=== PATIENT | male | born 1930 | race Caucasian/White ===

== ENCOUNTER 2016-10-06 20:45 | Observation (INO) | payer OTHER, BC ==
--- NOTE | 2016-10-06 21:23 | DR.GENAD ---
HPI - PCP Primary Care Physician: MARY - Complaint/Symptoms Chief Complaint Doctors Comments: Daughter states that he has episodes of SOB, previous PE; inferior vena cava filter placed. He has been feeling weak for some time. Chief Complaint:: PT C/O SOB AND FEELING WEAK - Source History Provided: Patient - Mode of Arrival Mode of Arrival: Wheelchair - Timing Onset of Chief Complaint: 10/06/16 PMH - PMH Past Medical History: Yes Past Medical History: Angina, CHF, Diabetes, Dyslipidemia, Hypertension Past Surgical History: Yes Surgical History: Angioplasty/Stents, Cholecystectomy - Family History History of Family Medical Conditions: Yes Family Medical History: Diabetes Mellitus, [place], Sudden Cardiac , Hypertension - Social History Does any household member use tobacco: No Alcohol Use: None Do you use any recreational Drugs:: No Lives With: Family Lives Where: Home - infectious screening In the last 2 months have you had wt loss of >10#?: NO Have you had fever, night sweats or hemotysis?: No Have you traveled outside the country in the last 6 months?: No Isolation: Standard ROS - Review of Systems Constitutional: No Symptoms Reported Eyes: No Symptoms Reported ENTM: No Symptoms Reported Respiratoy: No Symptoms Reported Cardiovascular: No Symptoms Reported Gastrointestinal/Abdominal: No Symptoms Reported Genitourinary: No Symptoms Reported Neurological: No Symptoms Reported Musculoskeletal: No Symptoms Reported Integumentary: No Symptoms Reported Hematologic/Lymphatic: No Symptoms Reported Endocrine: No Symptoms Reported Psychiatric: No Symptoms Reported All Other Systems: Reviewed and Negative PE - Vital Signs Vitals: Temperature 97.6 F Pulse Rate 66 Respiratory Rate 18 Blood Pressure [Right Arm] 109/57 Blood Pressure [Left Arm] 157/76 Blood Pressure 142/77 O2 Sat by Pulse Oximetry 99 - General Limitations: No Limitations General Appearance: Alert, In No Apparent Distress - Head Head Exam: Atraumatic - Eyes Eye exam: Normal Appearance, PERRL, EOMI - ENT ENT Exam: Normal Exam External Ear Exam: Normal External Inspection TM/Canal Exam: Bilateral Normal Nose Exam: Normal Nose Exam Mouth Exam: Normal Inspection Throat Exam: Normal Inspection - Neck Neck Exam: Normal Inspection - Chest Chest Inspection: Normal Inspection - Respiratory Respiratory Exam: Normal Lung Sounds Bilat Respiratory Exam: Bilateral Clear to Auscultation - Cardiovascular Cardiovascular Exam: Regular Rate, Normal Rhythm - Abdominal Exam Abdominal Exam: Normal Inspection Abdominal Tenderness: negative: RUQ, RLQ, LUQ, LLQ, Epigastrium, Suprapubic, Diffuse, Mild, Moderate, Severe, Other - Extremities Extremities Exam: Normal Inspection, Full ROM - Back Back Exam: Normal Inspection, Full ROM - Neurologic Neurological Exam: Alert, Oriented X3, CN II-XII Intact - Psychiatric Psychiatric Exam: Normal Affect - Skin Skin Exam: Warm, Dry, Intact Course - Consultation Called: 11:00 (Dr Obrien recommend admit for further evaluation) ROR - Labs Reviewed Result Diagrams: 10/06/16 21:40 10/06/16 21:40 Laboratory: WBC 4.0 X10^3/uL (3.6-10.0) 10/06/16 21:40 RBC 3.84 X10^6/uL (4.7-6.0) L 10/06/16 21:40 Hgb 11.7 g/dL (13.5-18.0) L 10/06/16 21:40 Hct 34.7 % (42.0-54.0) L 10/06/16 21:40 MCV 90.2 fL (80.0-100.0) 10/06/16 21:40 MCH 30.4 pg (27.0-34.0) 10/06/16 21:40 MCHC 33.7 g/dL (33.0-35.0) 10/06/16 21:40 RDW 14.1 % (11.6-16.5) 10/06/16 21:40 Plt Count 138 X10^3/uL (150.0-450.0) L 10/06/16 21:40 MPV 8.4 fL (7.4-11.0) 10/06/16 21:40 Neut % 66.9 % (42.0-75.0) 10/06/16 21:40 Lymph % 19.5 % (21.0-51.0) L 10/06/16 21:40 [place] % 10.6 % (0.0-13.0) 10/06/16 21:40 Eos % 2.0 % (0.9-2.9) 10/06/16 21:40 Baso % 1.0 % (0.2-1.0) 10/06/16 21:40 Neut # 2.6 x10^3/uL (2.2-4.8) 10/06/16 21:40 Lymph # 0.8 X10^3/uL (1.3-2.9) L 10/06/16 21:40 [place] # 0.4 x10^3/uL (0.3-0.8) 10/06/16 21:40 Eos # 0.1 x10^3/uL (0.0-0.2) 10/06/16 21:40 Baso # 0.0 X10^3/uL (0.0-0.1) 10/06/16 21:40 Absolute Nucleated RBC 0.1 /100WBC 10/06/16 21:40 D-Dimer 611 ng/mL (0-400) H* 10/06/16 21:40 Sodium 142 mmol/L (136-145) 10/06/16 21:40 Corrected Sodium 144 mmol/L (136-145) 10/06/16 21:40 Potassium 3.9 mmol/L (3.5-5.1) 10/06/16 21:40 Chloride 107 mmol/L (98-107) 10/06/16 21:40 Carbon Dioxide 28.2 mmol/L (21-32) 10/06/16 21:40 BUN 18 mg/dL (7-18) 10/06/16 21:40 Creatinine 1.61 mg/dL (0.70-1.30) H 10/06/16 21:40 Est GFR (MDRD) Af Amer 52 (>60) L 10/06/16 21:40 Est GFR (MDRD) Non-Af 43 (>60) L 10/06/16 21:40 Glucose 172 mg/dL (65-99) H 10/06/16 21:40 Calcium 8.1 mg/dL (8.5-10.1) L 10/06/16 21:40 Corrected Calcium 9.1 mg/dL (8.5-10.1) 10/06/16 21:40 Total Bilirubin 0.40 mg/dL (0.2-1.0) 10/06/16 21:40 AST 15 Units/L (15-37) 10/06/16 21:40 ALT 21 Units/L (12-78) 10/06/16 21:40 Alkaline Phosphatase 36 Units/L (46-116) L 10/06/16 21:40 Total Protein 5.9 g/dL (6.4-8.2) L 10/06/16 21:40 Albumin 2.8 g/dL (3.4-5.0) L 10/06/16 21:40 Globulin 3.1 g/dL (2.5-4.5) 10/06/16 21:40 Albumin/Globulin Ratio 0.9 Ratio (1.1-2.1) L 10/06/16 21:40 - XRAY XRAY Interpreted by: Radiologist (Acute Abdomen Series: The cardiac silhouette is enlarged in size. The lungs are clear without focal infiltrate or effusion. The bony thorax is unremarkable. Flat plate and upright evaluation of the abdomen demonstrates a nonspecific bowel gas pattern. An IVC filter is in present. No pathological soft tissue mass or calcification can be observed. The bony structures are grossly intact. Impression: Cardiomegaly without evidence of acute cardiopulmonary process. No evidence for acute abdominal pathology identified.) - Diagnosis Discharge Problem: Acute dyspnea, At high risk for pulmonary embolism - Discharge Plan Condition: Stable - Follow ups/Referrals Follow ups/Referrals: Pacheco Obrien [Primary Care Provider] - 3 days - Instructions
[2016-10-06 21:54] LABS: EOSINOPHILS # (AUTO) 0.1 x10^3/uL (0.0-0.2); HEMATOCRIT 34.7 % (42.0-54.0); HEMOGLOBIN 11.7 g/dL (13.5-18.0); LYMPHOCYTES # (AUTO) 0.8 X10^3/uL (1.3-2.9); LYMPHOCYTES % (AUTO) 19.5 % (21.0-51.0); MEAN CORPUSCULAR HEMOGLOBIN 30.4 pg (27.0-34.0); MEAN CORPUSCULAR HGB CONC 33.7 g/dL (33.0-35.0); MEAN CORPUSCULAR VOLUME 90.2 fL (80.0-100.0); MEAN PLATELET VOLUME 8.4 fL (7.4-11.0); MONOCYTES # (AUTO) 0.4 x10^3/uL (0.3-0.8); MONOCYTES % (AUTO) 10.6 % (0.0-13.0); NEUTROPHILS # (AUTO) 2.6 x10^3/uL (2.2-4.8); NEUTROPHILS % (AUTO) 66.9 % (42.0-75.0); PLATELET COUNT 138 X10^3/uL (150.0-450.0); RED BLOOD COUNT 3.84 X10^6/uL (4.7-6.0); RED CELL DISTRIBUTION WIDTH 14.1 % (11.6-16.5)
[2016-10-06 22:05] LABS: ALBUMIN 2.8 g/dL (3.4-5.0); CALCIUM 8.1 mg/dL (8.5-10.1); CARBON DIOXIDE 28.2 mmol/L (21-32); COR CA(FOR HYPOALB) 9.1 mg/dL (8.5-10.1); CREATININE 1.61 mg/dL (0.70-1.30); TOTAL PROTEIN 5.9 g/dL (6.4-8.2)
--- NOTE | 2016-10-06 22:32 | RAD ---
HISTORY: Shortness of breath and weakness Study: Acute abdominal series Comparison: Chest radiograph performed May 20, 2015 Findings: The trachea is midline. The cardiac silhouette is enlarged in size. The lungs are clear without fo vicky infiltrate or effusion. The bony thorax is unremarkable. Flat plate and upright evaluation of the abdomen demonstrates a nonspecific bowel gas pattern. An IV C filter is present. No pathological soft tissue mass or calcification can be observed. The bony s tructures are grossly intact. IMPRESSION: 1. Cardiomegaly without evidence of acute cardiopulmonary process 2. No evidence for acute abdominal pathology identified. Reported By:
[2016-10-06] MEDS ORDERED: NS 1000 ML 1,000 ML ONE (23:54)
[2016-10-06] MEDS: NS 1000 ML 1,000 ML IV SCH (23:55)
[2016-10-07] MEDS: LIPITOR TAB 40 MG PO SCH ×2 (01:19→21:14)
[2016-10-07 05:04] LABS: BASOPHILS % (AUTO) 0.9 % (0.2-1.0); EOSINOPHILS # (AUTO) 0.1 x10^3/uL (0.0-0.2); EOSINOPHILS % (AUTO) 2.6 % (0.9-2.9); HEMATOCRIT 34.9 % (42.0-54.0); HEMOGLOBIN 11.7 g/dL (13.5-18.0); LYMPHOCYTES # (AUTO) 0.9 X10^3/uL (1.3-2.9); MEAN CORPUSCULAR HEMOGLOBIN 30.4 pg (27.0-34.0); MEAN CORPUSCULAR HGB CONC 33.5 g/dL (33.0-35.0); MEAN CORPUSCULAR VOLUME 90.9 fL (80.0-100.0); MEAN PLATELET VOLUME 8.8 fL (7.4-11.0); MONOCYTES # (AUTO) 0.4 x10^3/uL (0.3-0.8); MONOCYTES % (AUTO) 11.6 % (0.0-13.0); NEUTROPHILS # (AUTO) 2.3 x10^3/uL (2.2-4.8); NEUTROPHILS % (AUTO) 61.9 % (42.0-75.0); PLATELET COUNT 121 X10^3/uL (150.0-450.0); RED BLOOD COUNT 3.84 X10^6/uL (4.7-6.0); RED CELL DISTRIBUTION WIDTH 13.9 % (11.6-16.5); WHITE BLOOD COUNT 3.7 X10^3/uL (3.6-10.0)
[2016-10-07 05:09] LABS: ALANINE AMINOTRANSFERASE 17 Units/L (12-78); ALBUMIN 2.6 g/dL (3.4-5.0); ALKALINE PHOSPHATASE 32 Units/L (46-116); ASPARTATE AMINO TRANSFERASE 14 Units/L (15-37); BLOOD UREA NITROGEN 16 mg/dL (7-18); CARBON DIOXIDE 26.8 mmol/L (21-32); CHLORIDE 109 mmol/L (98-107); COR CA(FOR HYPOALB) 9.1 mg/dL (8.5-10.1); CREATININE 1.26 mg/dL (0.70-1.30); GLUCOSE 108 mg/dL (65-99); SODIUM 143 mmol/L (136-145); TOTAL PROTEIN 5.4 g/dL (6.4-8.2); eGFR BLACK RACES > 60 (>60); eGFR NON BLACK RACES 58 (>60)
[2016-10-07] MEDS: BENTYL CAP 10 MG PO SCH ×3 (05:44→21:14)
[2016-10-07] MEDS: VITAMIN D3 PO SCH (08:59)
[2016-10-07] MEDS: PLAVIX PO SCH (09:00)
[2016-10-07] MEDS: COUMADIN TAB 3 MG PO SCH (09:00)
[2016-10-07] MEDS: COLACE CAP 100 MG PO SCH ×2 (09:00→21:14)
[2016-10-07] MEDS ORDERED: AMARYL TAB 4 MG PO SCH (09:00)
[2016-10-07] MEDS: PROTONIX TAB 40 MG PO SCH (09:00)
[2016-10-07] MEDS: TOPROL XL PO SCH (09:00)
[2016-10-07] MEDS: AMARYL TAB 4 MG PO SCH (09:00)
[2016-10-07] MEDS: NOLVADEX PO SCH ×2 (09:02→14:20)
[2016-10-07] MEDS: HUMULIN R SUBCUT PRN (11:07)
[2016-10-07] MEDS: NS 1000 ML 1,000 ML IV SCH ×2 (12:31→14:17)
--- NOTE | 2016-10-07 14:21 | DR.H&P ---
H&P - History & Physical for Day of: H&P Date: 10/06/16 - Chief Complaint Chief Complaint: SHORTNESS OF BREATH - Allergies Allergies/Adverse Reactions: Allergies Allergy/AdvReac Type Severity Reaction Status Date / Time No Known Drug Allergy Allergy Verified 05/19/15 22:47 - History of Present Illness History of Present Illness: THIS IS AN 86 YEAR OLD MALE, WHO IS A PATIENT OF OURS. HE PRESENTS TO THE EMERGENCY ROOM WITH DAUGHTER REPORTING SHORTNESS OF BREATH. DAUGHTER REPORTS PATIENT HAS A HISTORY OF PULMONARY EMBOLUS. SHE ALSO REPORTS SHORTNESS OF BREATH STARTED APPROXIMATELY TWO WEEKS AGO AND HAS WORSENED IN SEVERITY. PATIENT REPORTS GENERALIZED WEAKNESS. PATIENT HAS HAD AN IVC FILTER PLACED AND IS CURRENTLY ON COUMADIN AND PLAVIX AT HOME. LABS AND XRAY OBTAINED. CBC WNL EXCEPT: H/H 11.7/34.7, PLT COUNT 138. CMP WNL EXCEPT: CREAT 1.61, GFR 43, GLUCOSE 172, CALCIUM 8.1, TOT PROTEIN 5.9, ALBUMIN 2.8. INR 1.31. D-DIMER 611. ABDOMINAL XRAY REPORTS CARDIOMEGALY WITHOUT EVIDENCE OF ACUTE CARDIOPULMONARY PROCESS; NO EVIDENCE FOR ACUTE ABDOMINAL PATHOLOGY. WE WILL CONTINUE PATIENT ON COUMADIN AND PLAVIX. WE WILL START SUPPLEMENTAL OXYGEN, MONITOR ON TELEMETRY, AND FOLLOW UP IN AM WITH LABS. - Past Medical History Past Medical History: Anemia, Angina, CHF, Coronary Artery Disease, Diabetes, Dyslipidemia, Hypertension Additional Medical History: Hx Gastrointestinal Ulcer, BPH, Hx multiple PE's, Pulmonary HTN, Hx Prostate Cancer, TIA, Diverticulosis, Muscle Weakness, Back Pain, Previous Blood Transfusion, Prostate Cancer - Past Surgical History Surgical History: Angioplasty/Stents, Cholecystectomy, Other Additional Surgical History: Cataract Removal, IVC Filter, Heart Cath 06/2016 - Family History Family Medical History: Diabetes Mellitus, [place] - Social History Does patient currently use any type of tobacco product: Yes (CHEWS) Have you used tobacco products in the last 12 months: Yes Type of Tobacco Use: Smokeless How many years tobacco product used: 65 Does any household member use tobacco: No Alcohol Use: None Drug Use: None - Medications Home Medications: Cholecalciferol [Vitamin D3] 5,000 unit PO BID 10/06/16 [History Confirmed 10/07] Dicyclomine HCl [Bentyl Cap 10 mg] 10 mg PO TID 10/06/16 [History Confirmed ] Lisinopril [ZESTRIL *] 40 mg PO HS 10/06/16 [History Confirmed 10/07/16] Metoprolol Succinate [Toprol Xl] 25 mg PO DAILY 10/06/16 [History Confirmed ] Pantoprazole Sodium 40 mg [Protonix Tab 40 mg] 40 mg PO DAILY 10/06/16 [History Confirmed 10/07/16] Warfarin Sodium [Coumadin Tab 3 mg] 3 mg PO DAILY 10/06/16 [History Confirmed ] - Review of Systems Constitutional: Weakness, Malaise Eyes: No Symptoms Reported. denies: Pain, Vision Change, Conjunctivae Inflammation, Eyelid Inflammation, Redness ENT: No Symptoms Reported. denies: Ear Pain, Ear Discharge, Nose Pain, Nose Discharge, Nose Congestion, Mouth Pain, Mouth Swelling, Throat Pain, Throat Swelling Respiratory: Shortness of Breath, SOB with Excertion. denies: Cough, Hemoptysis , Pleuritic Pain, Sputum, Wheezing Cardiovascular: No Symptoms Reported. denies: Chest Pain, Palpitations, Orthopnea, Paroxysmal Noc. Dyspnea, Edema, Light Headedness Gastrointestinal: No Symptoms Reported. denies: Nausea, Vomiting, Abdominal Pain, Diarrhea, Constipation, Melena, Hematochezia Genitourinary: No Symptoms Reported. denies: Dysuria, Frequency, Incontinence, Hematuria, Retention Musculoskeletal: No Symptoms Reported. denies: Shoulder Pain, Back Pain, Hand Pain, Leg Pain, Foot Pain, Neck Pain Skin: No Symptoms Reported. denies: Rash, Lesions, Jaundice, Bruising, Wound, Ecchymosis Neurological: No Symptoms Reported. denies: Weakness, Numbness, Incoordination , Change in Speech, Confusion, Seizures - Physical Exam Vital Signs: Temperature 98.9 F Pulse Rate [Apical] 52 Respiratory Rate 15 Blood Pressure [Left Arm] 156/69 O2 Sat by Pulse Oximetry 98 Oriented: Normal, Time, Person, Place Eyes: Normal. negative: Blurred Vision, Discharge, Pain, Redness Ear: Normal. negative: Swelling, Ecchymosis, Hemotypanum, Abrasion, Laceration Nose: Normal. negative: Injected, Discharge, Blood Throat: Normal. negative: Tonsillar Hypertrophy, Red, Exudate Respiratory: Clear Throughout Cardiovascular: Normal. negative: Murmur, Edema : Normal. negative: Dysuria, Hematuria, Frequency, Discharge, Testicular Pain Auscultation: Bowel Sounds: Normal. negative: Bruit Palpation: Normal. negative: Spleen Enlarged, Liver Enlarged, Mass Pulsatile Tenderness: Normal. negative: Rebound, Guarding, Rigidity Skin: Normal. negative: Diaphoresis, Wound, Bruising, Ecchymosis Musculoskeletal: Instability Psychiatric: Normal Mood Description: Calm, Appropriate Affect: Normal Speech Pattern: Clear, Appropriate - Assessment/Plan (1) Acute dyspnea Status: Acute Plan: ADMIT PATIENT, MONITOR ON CONTINUOUS PULSE OXIMETRY, TELEMETRY, SUPPLEMENTAL OXYGEN, CONTINUE PLAVIX AND COUMADIN, VQ SCAN IN AM. (2) At high risk for pulmonary embolism Status: Acute Plan: ABOVE. (3) History of pulmonary embolism Status: Chronic (4) COPD (chronic obstructive pulmonary disease) Qualifiers: COPD type: emphysema Chronic bronchitis type: C Emphysema type: unspecified Qualified Code(s): J43.9 - Emphysema, unspecified Status: Chronic (5) Emphysema Status: Chronic (6) CHF (congestive heart failure) Qualifiers: Congestive heart failure type: unspecified congestive heart failure type Congestive heart failure chronicity: acute Qualified Code(s): I50.9 - Heart failure, unspecified Status: Chronic (7) Diabetes mellitus, type II Qualifiers: Diabetes mellitus complication status: without complication Diabetes mellitus complication detail: D Diabetic retinopathy severity: D Proliferative retinopathy type: P Diabetes mellitus macular edema: D Diabetes mellitus building superintendent insulin use: without fdc use Laterality: L Chronic kidney disease stage: C Qualified Code(s): E11.9 - Type 2 diabetes mellitus without complications Status: Chronic (8) Essential hypertension Status: Chronic (9) Hyperlipidemia Qualifiers: Hyperlipidemia type: mixed hyperlipidemia Qualified Code(s): E78.2 - Mixed hyperlipidemia Status: Chronic
--- NOTE | 2016-10-07 14:25 | NM ---
HISTORY: Elevated D-dimer, shortness of breath Study: Ventilation-perfusion lung scan Comparison: Plain film October 06, 2016 Technique: Ventilation scan was carried out using 25 millicuries technetium 99 DTPA aerosol. Perfusi on scan was carried out using 5.5 millicuries technetium 99 MAA. Findings: Resulting images demonstrated symmetric ventilation without ventilation defects. Perfusion images de monstrated a lobar perfusion defect involving the right middle lobe. No other perfusion defects are identified. Plain chest x-ray demonstrated cardiomegaly without congestive heart failure and clear l ungs. According to the modified PIOPED criteria for the diagnosis of pulmonary embolus the presence of a lobar perfusion defect in the setting of a normal ventilation scan and clear chest x-ray base the probability of acute pulmonary thromboembolic disease high. IMPRESSION: High probability acute pulmonary thromboembolic disease based on a mismatched ventilation-perfusion defects involving the right middle lobe. Reported By:
--- NOTE | 2016-10-07 14:50 | PCM.PROG ---
Progress Note - Progress Note for Day of Date: 10/07/16 - Subjective Subjective: PATIENT IS UP AND AMBULATING TO BATHROOM UPON ROUNDS. HE IS NOTED WITH SHORTNESS OF BREATH WITH EXERTION. A VQ SCAN IS PLANNED FOR TODAY. DAUGHTER AT BEDSIDE. WE DISCUSS PLANS FOR ADDITIONAL TESTING TODAY AND CONTINUED MONITORING. SHE VOICES UNDERSTANDING. ON AUSCULTATION, LUNGS DIMINSHED, BUT CLEAR. CBC WNL EXCEPT: H/H 11.7/34.9. PLT COUNT 121. CMP WNL EXCEPT: CHL 109, GFR 58, GLUCOSE 108, CALCIUM 8.0, TOT PROTEIN 5.4, ALBUMIN 2.6. WE WILL START ALBUMIN, OBTAIN SERIAL CARDIAC ENZYMES AND EKG'S, AND CONTINUE TO MONITOR. WE WILL OBTAIN VQ SCAN TODAY AND CONTINUE SUPPLEMENTAL OXYGEN. - Past Medical Family Social History Past Med/Fam/Surg Hx: No changes since H&P Allergies: Allergies No Known Drug Allergy Allergy (Verified 05/19/15 22:47) - Review of Systems ROS: No change since H&P - Vital Signs and I&O's Vital Signs: Temperature 98.9 F Pulse Rate [Apical] 52 Respiratory Rate 15 Blood Pressure [Left Arm] 156/69 O2 Sat by Pulse Oximetry 98 Intake and Output: Intake & Output 10/05/16 10/06/16 10/07/16 10/08/16 11:59 11:59 11:59 11:59 Intake Total 791 1065 Output Total 670 800 Balance 121 265 - Physical Exam Oriented: Normal, Time, Person, Place Eyes: Normal. negative: Blurred Vision, Discharge, Pain, Redness Ear: Normal. negative: Swelling, Ecchymosis, Hemotypanum, Abrasion, Laceration Nose: Normal. negative: Injected, Discharge, Blood Throat: Normal. negative: Tonsillar Hypertrophy, Red, Exudate Respiratory: Generalized, Diminished Cardiovascular: Normal. negative: Murmur, Edema : Normal. negative: Dysuria, Hematuria, Frequency, Discharge, Testicular Pain Auscultation: Bowel Sounds: Normal. negative: Bruit Palpation: Normal. negative: Spleen Enlarged, Liver Enlarged, Mass Pulsatile Tenderness: Normal. negative: Rebound, Guarding, Rigidity Skin: Normal. negative: Diaphoresis, Wound, Bruising, Ecchymosis Musculoskeletal: Instability Psychiatric: Normal Mood Description: Calm, Appropriate Affect: Normal Speech Pattern: Clear, Appropriate - Laboratory and Diagnostics Result Diagrams: 10/07/16 04:15 10/07/16 04:15 Labs: Laboratory WBC 3.7 X10^3/uL (3.6-10.0) 10/07/16 04:15 RBC 3.84 X10^6/uL (4.7-6.0) L 10/07/16 04:15 Hgb 11.7 g/dL (13.5-18.0) L 10/07/16 04:15 Hct 34.9 % (42.0-54.0) L 10/07/16 04:15 MCV 90.9 fL (80.0-100.0) 10/07/16 04:15 MCH 30.4 pg (27.0-34.0) 10/07/16 04:15 MCHC 33.5 g/dL (33.0-35.0) 10/07/16 04:15 RDW 13.9 % (11.6-16.5) 10/07/16 04:15 Plt Count 121 X10^3/uL (150.0-450.0) L 10/07/16 04:15 MPV 8.8 fL (7.4-11.0) 10/07/16 04:15 Neut % 61.9 % (42.0-75.0) 10/07/16 04:15 Lymph % 23.0 % (21.0-51.0) 10/07/16 04:15 [place] % 11.6 % (0.0-13.0) 10/07/16 04:15 Eos % 2.6 % (0.9-2.9) 10/07/16 04:15 Baso % 0.9 % (0.2-1.0) 10/07/16 04:15 Neut # 2.3 x10^3/uL (2.2-4.8) 10/07/16 04:15 Lymph # 0.9 X10^3/uL (1.3-2.9) L 10/07/16 04:15 [place] # 0.4 x10^3/uL (0.3-0.8) 10/07/16 04:15 Eos # 0.1 x10^3/uL (0.0-0.2) 10/07/16 04:15 Baso # 0.0 X10^3/uL (0.0-0.1) 10/07/16 04:15 Absolute Nucleated RBC 0.1 /100WBC 10/07/16 04:15 INR Target Range - 10/06/16 21:40 INR 1.31 (0.8-1.3) H 10/06/16 21:40 D-Dimer 611 ng/mL (0-400) H* 10/06/16 21:40 Sodium 143 mmol/L (136-145) 10/07/16 04:15 Corrected Sodium TNP 10/07/16 04:15 Potassium 3.6 mmol/L (3.5-5.1) 10/07/16 04:15 Chloride 109 mmol/L (98-107) H 10/07/16 04:15 Carbon Dioxide 26.8 mmol/L (21-32) 10/07/16 04:15 BUN 16 mg/dL (7-18) 10/07/16 04:15 Creatinine 1.26 mg/dL (0.70-1.30) 10/07/16 04:15 Est GFR (MDRD) Af Amer > 60 (>60) 10/07/16 04:15 Est GFR (MDRD) Non-Af 58 (>60) L 10/07/16 04:15 Glucose 108 mg/dL (65-99) H 10/07/16 04:15 Calcium 8.0 mg/dL (8.5-10.1) L 10/07/16 04:15 Corrected Calcium 9.1 mg/dL (8.5-10.1) 10/07/16 04:15 Total Bilirubin 0.50 mg/dL (0.2-1.0) 10/07/16 04:15 AST 14 Units/L (15-37) L 10/07/16 04:15 ALT 17 Units/L (12-78) 10/07/16 04:15 Alkaline Phosphatase 32 Units/L (46-116) L 10/07/16 04:15 Total Protein 5.4 g/dL (6.4-8.2) L 10/07/16 04:15 Albumin 2.6 g/dL (3.4-5.0) L 10/07/16 04:15 Globulin 2.8 g/dL (2.5-4.5) 10/07/16 04:15 Albumin/Globulin Ratio 0.9 Ratio (1.1-2.1) L 10/07/16 04:15 - Plan (1) Acute dyspnea Status: Acute Plan: OBTAIN SERIAL CARDIAC ENZYMES, EKG'S, CONTINUE TO MONITOR ON CONTINUOUS PULSE OXIMETRY, TELEMETRY, SUPPLEMENTAL OXYGEN, CONTINUE PLAVIX AND COUMADIN, VQ SCAN TODAY. (2) At high risk for pulmonary embolism Status: Acute Plan: ABOVE. (3) History of pulmonary embolism Status: Chronic (4) COPD (chronic obstructive pulmonary disease) Status: Chronic Qualifiers: COPD type: emphysema Chronic bronchitis type: C Emphysema type: unspecified Qualified Code(s): J43.9 - Emphysema, unspecified (5) Emphysema Status: Chronic (6) CHF (congestive heart failure) Status: Chronic Qualifiers: Congestive heart failure type: unspecified congestive heart failure type Congestive heart failure chronicity: acute Qualified Code(s): I50.9 - Heart failure, unspecified (7) Diabetes mellitus, type II Status: Chronic Qualifiers: Diabetes mellitus complication status: without complication Diabetes mellitus complication detail: D Diabetic retinopathy severity: D Proliferative retinopathy type: P Diabetes mellitus macular edema: D Diabetes mellitus intermodal truck driver insulin use: without intermodal truck driver use Laterality: L Chronic kidney disease stage: C Qualified Code(s): E11.9 - Type 2 diabetes mellitus without complications (8) Essential hypertension Status: Chronic (9) Hyperlipidemia Status: Chronic Qualifiers: Hyperlipidemia type: mixed hyperlipidemia Qualified Code(s): E78.2 - Mixed hyperlipidemia
[2016-10-07] MEDS: ALBUMIN HUMAN 25%- 100ML 100 ML IV SCH (14:56)
[2016-10-07 15:14] LABS: CKMB % 1.8 % (<4); CREATINE KINASE MB 1.4 ng/mL (0-4.0); TROPONIN I 0.02 ng/mL (0-1.5)
[2016-10-07 19:11] LABS: CREATINE KINASE MB 1.1 ng/mL (0-4.0); TROPONIN I 0.03 ng/mL (0-1.5)
[2016-10-07] MEDS ORDERED: SNACK - Diabetic Appropriate PO SCH (20:00)
[2016-10-07] MEDS ORDERED: ZESTRIL TAB 40 MG PO SCH (21:00)
[2016-10-07 23:05] LABS: CKMB % 1.9 % (<4); CREATINE KINASE MB 1.1 ng/mL (0-4.0); TROPONIN I 0.02 ng/mL (0-1.5)
[2016-10-08] MEDS: NS 1000 ML 1,000 ML IV SCH ×2 (01:05→16:23)
[2016-10-08 05:22] LABS: ALANINE AMINOTRANSFERASE 15 Units/L (12-78); ALBUMIN 2.8 g/dL (3.4-5.0); ALKALINE PHOSPHATASE 31 Units/L (46-116); ASPARTATE AMINO TRANSFERASE 12 Units/L (15-37); BLOOD UREA NITROGEN 17 mg/dL (7-18); CALCIUM 8.2 mg/dL (8.5-10.1); CARBON DIOXIDE 26.3 mmol/L (21-32); CHLORIDE 109 mmol/L (98-107); COR CA(FOR HYPOALB) 9.2 mg/dL (8.5-10.1); COR NA(FOR HYPERGLY) 141 mmol/L (136-145); CREATININE 1.01 mg/dL (0.70-1.30); GLUCOSE 114 mg/dL (65-99); SODIUM 141 mmol/L (136-145); TOTAL PROTEIN 5.2 g/dL (6.4-8.2); eGFR BLACK RACES > 60 (>60); eGFR NON BLACK RACES > 60 (>60)
[2016-10-08 05:23] LABS: EOSINOPHILS # (AUTO) 0.1 x10^3/uL (0.0-0.2); EOSINOPHILS % (AUTO) 2.3 % (0.9-2.9); HEMATOCRIT 32.3 % (42.0-54.0); HEMOGLOBIN 10.8 g/dL (13.5-18.0); LYMPHOCYTES # (AUTO) 0.6 X10^3/uL (1.3-2.9); LYMPHOCYTES % (AUTO) 17.4 % (21.0-51.0); MEAN CORPUSCULAR HEMOGLOBIN 30.3 pg (27.0-34.0); MEAN CORPUSCULAR HGB CONC 33.4 g/dL (33.0-35.0); MEAN CORPUSCULAR VOLUME 90.7 fL (80.0-100.0); MEAN PLATELET VOLUME 8.6 fL (7.4-11.0); MONOCYTES # (AUTO) 0.5 x10^3/uL (0.3-0.8); MONOCYTES % (AUTO) 12.3 % (0.0-13.0); NEUTROPHILS # (AUTO) 2.5 x10^3/uL (2.2-4.8); PLATELET COUNT 110 X10^3/uL (150.0-450.0); RED BLOOD COUNT 3.56 X10^6/uL (4.7-6.0); WHITE BLOOD COUNT 3.7 X10^3/uL (3.6-10.0)
[2016-10-08] MEDS: BENTYL CAP 10 MG PO SCH ×3 (05:58→13:42)
[2016-10-08] MEDS: AMARYL TAB 4 MG PO SCH (06:00)
--- NOTE | 2016-10-08 07:06 | RAD ---
HISTORY: Shortness of breath, Study: Chest one view Comparison: October 06, 2016 Findings: The heart remains enlarged. The aorta is calcified and ectatic. No congestive heart failure is noted . The lung palma are clear. No pleural effusions are identified. IMPRESSION: Cardiomegaly without congestive heart failure Lungs clear Reported By:
[2016-10-08] MEDS: COLACE CAP 100 MG PO SCH (08:18)
[2016-10-08] MEDS: TOPROL XL PO SCH (08:18)
[2016-10-08] MEDS: PROTONIX TAB 40 MG PO SCH (08:18)
[2016-10-08] MEDS: ALBUMIN HUMAN 25%- 100ML 100 ML IV SCH (08:18)
[2016-10-08] MEDS: PLAVIX PO SCH (08:19)
[2016-10-08] MEDS: VITAMIN D3 PO SCH (08:19)
[2016-10-08] MEDS: COUMADIN TAB 3 MG PO SCH (08:20)
[2016-10-08] MEDS: COZAAR PO SCH ×2 (09:40→10:45)
[2016-10-08 10:44] VITALS: BMI 28.7
[2016-10-08] MEDS: NOLVADEX PO SCH (13:31)
[2016-10-08] MEDS: HUMULIN R SUBCUT PRN ×2 (13:40→16:23)
[2016-10-08 16:36] VITALS: BP 146/70
== END 2016-10-08 18:50 | disposition home health service (06) | DRG 204 ==
LOC: ER 20:45 → UNDOADMOB 23:16 → ICU 23:16
PROVIDERS: ADMIT Internal Medicine; ATTEND Internal Medicine
DX: R06.09 Other forms of dyspnea (principal); R06.02 Shortness of breath; R79.1 Abnormal coagulation profile; R53.1 Weakness; E11.65 Type 2 diabetes mellitus with hyperglycemia; E78.2 Mixed hyperlipidemia; I10 Essential (primary) hypertension; I51.7 Cardiomegaly; J43.8 Other emphysema; I50.9 Heart failure, unspecified; R94.31 Abnormal electrocardiogram [ECG] [EKG]; D64.89 Other specified anemias; R94.4 Abnormal results of kidney function studies; Z86.711 Personal history of pulmonary embolism; Z79.899 Other long term (current) drug therapy; Z79.01 Long term (current) use of anticoagulants
CPT/HCPCS: 36415; 71010; 74022; 78582; 80053; 82550; 82553; 84484; 85025; 85378; 85610; 93005; 96365; 99284; A4216; A4222; P9047; G0378; J1815

== ENCOUNTER 2017-03-13 17:27 | Observation (INO) | payer OTHER, BC ==
[2017-03-13 18:35] VITALS: BMI 23.1
[2017-03-13] MEDS ORDERED: MORPHINE SULFATE INJ 2 MG INJ IVP PRN (18:58)
[2017-03-13] MEDS ORDERED: NITROSTAT SL PRN (18:58)
[2017-03-13 19:39] LABS: BASOPHILS % (AUTO) 0.9 % (0.2-1.0); EOSINOPHILS # (AUTO) 0.1 x10^3/uL (0.0-0.2); EOSINOPHILS % (AUTO) 1.6 % (0.9-2.9); HEMATOCRIT 38.1 % (42.0-54.0); HEMOGLOBIN 12.9 g/dL (13.5-18.0); LYMPHOCYTES # (AUTO) 0.8 X10^3/uL (1.3-2.9); LYMPHOCYTES % (AUTO) 18.1 % (21.0-51.0); MEAN CORPUSCULAR VOLUME 88.2 fL (80.0-100.0); MEAN PLATELET VOLUME 8.9 fL (7.4-11.0); MONOCYTES # (AUTO) 0.5 x10^3/uL (0.3-0.8); NEUTROPHILS % (AUTO) 68.4 % (42.0-75.0); PLATELET COUNT 139 X10^3/uL (150.0-450.0); RED BLOOD COUNT 4.32 X10^6/uL (4.7-6.0); RED CELL DISTRIBUTION WIDTH 14.6 % (11.6-16.5); WHITE BLOOD COUNT 4.4 X10^3/uL (3.6-10.0)
[2017-03-13 20:00] LABS: ALANINE AMINOTRANSFERASE 18 Units/L (12-78); ALKALINE PHOSPHATASE 26 Units/L (46-116); ASPARTATE AMINO TRANSFERASE 17 Units/L (15-37); BLOOD UREA NITROGEN 23 mg/dL (7-18); CALCIUM 8.5 mg/dL (8.5-10.1); CARBON DIOXIDE 26.1 mmol/L (21-32); CHLORIDE 106 mmol/L (98-107); COR CA(FOR HYPOALB) 9.3 mg/dL (8.5-10.1); COR NA(FOR HYPERGLY) 139 mmol/L (136-145); CREATININE 1.21 mg/dL (0.70-1.30); MAGNESIUM 1.7 mg/dL (1.7-2.9); SODIUM 138 mmol/L (136-145); TOTAL PROTEIN 5.8 g/dL (6.4-8.2); eGFR BLACK RACES > 60 (>60); eGFR NON BLACK RACES > 60 (>60)
[2017-03-13 20:01] LABS: CKMB % 1.6 % (<4); CREATINE KINASE 84 Units/L (39-308); CREATINE KINASE MB 1.3 ng/mL (0-4.0); TROPONIN I < 0.02 ng/mL (0-1.5)
[2017-03-13] MEDS: ECOTRIN TAB 325 MG PO SCH (20:08)
[2017-03-13] MEDS: NS 1000 ML 1,000 ML IV SCH (20:08)
[2017-03-13 21:56] LABS: BILIRUBIN,URINE NEGATIVE (NEGATIVE); BLOOD/HEMOGLOBIN,URINE 2+ (NEGATIVE); GLUCOSE, URINE 1+ (NEGATIVE); KETONES,URINE NEGATIVE (NEGATIVE); LEUKOCYTE ESTERASE ,URINE 1+ (NEGATIVE); NITRITES,URINE NEGATIVE (NEGATIVE); PROTEIN,URINE 1+ (NEGATIVE); UROBILINOGEN,URINE NORMAL (NORMAL)
[2017-03-13 22:26] LABS: APPEARANCE,URINE CLEAR (CLEAR); BACTERIA,URINE NEGATIVE /HPF (NEGATIVE); COLOR,URINE YELLOW (YELLOW); SQUAMOUS EPITHELIAL CELL,UR MODERATE /HPF (NEGATIVE)
--- NOTE | 2017-03-13 22:57 | RAD ---
Chest, one view Indication: Chest pain Comparison: October 08, 2016 Findings: There is stable enlargement of the cardiac silhouette without evidence of congestive failur e. No focal consolidation, effusion or pneumothorax is identified. The osseous thorax is unremarkable . Impression: No acute cardiopulmonary abnormality. Reported By:
[2017-03-14] LABS: CKMB % 1.5 % (<4); CREATINE KINASE MB 1.2 ng/mL (0-4.0); TROPONIN I 0.02 ng/mL (0-1.5)
[2017-03-14 03:54] LABS: ALANINE AMINOTRANSFERASE 15 Units/L (12-78); ALBUMIN 2.7 g/dL (3.4-5.0); ALKALINE PHOSPHATASE 25 Units/L (46-116); ASPARTATE AMINO TRANSFERASE 17 Units/L (15-37); BLOOD UREA NITROGEN 21 mg/dL (7-18); CALCIUM 8.4 mg/dL (8.5-10.1); CARBON DIOXIDE 24.5 mmol/L (21-32); CHLORIDE 109 mmol/L (98-107); CHOL/HDL RATIO 4.2 (0.0-5.0); CHOLESTEROL 148 mg/dL (0-200); COR CA(FOR HYPOALB) 9.4 mg/dL (8.5-10.1); CREATININE 1.19 mg/dL (0.70-1.30); HDL CHOLESTEROL 35 mg/dL (40-60); SODIUM 140 mmol/L (136-145); TOTAL PROTEIN 5.5 g/dL (6.4-8.2); TRIGLYCERIDES 114 mg/dL (0-150); eGFR BLACK RACES > 60 (>60); eGFR NON BLACK RACES > 60 (>60)
[2017-03-14 04:06] LABS: CKMB % 1.6 % (<4); CREATINE KINASE 70 Units/L (39-308); CREATINE KINASE MB 1.1 ng/mL (0-4.0); TROPONIN I < 0.02 ng/mL (0-1.5)
[2017-03-14 05:38] LABS: EOSINOPHILS # (AUTO) 0.1 x10^3/uL (0.0-0.2); EOSINOPHILS % (AUTO) 3.4 % (0.9-2.9); HEMOGLOBIN 12.8 g/dL (13.5-18.0); LYMPHOCYTES # (AUTO) 0.8 X10^3/uL (1.3-2.9); LYMPHOCYTES % (AUTO) 24.1 % (21.0-51.0); MEAN CORPUSCULAR HEMOGLOBIN 29.8 pg (27.0-34.0); MEAN CORPUSCULAR HGB CONC 33.8 g/dL (33.0-35.0); MEAN CORPUSCULAR VOLUME 88.2 fL (80.0-100.0); MEAN PLATELET VOLUME 9.1 fL (7.4-11.0); MONOCYTES # (AUTO) 0.4 x10^3/uL (0.3-0.8); MONOCYTES % (AUTO) 12.3 % (0.0-13.0); NEUTROPHILS # (AUTO) 1.9 x10^3/uL (2.2-4.8); NEUTROPHILS % (AUTO) 59.2 % (42.0-75.0); PLATELET COUNT 118 X10^3/uL (150.0-450.0); RED BLOOD COUNT 4.31 X10^6/uL (4.7-6.0); RED CELL DISTRIBUTION WIDTH 14.6 % (11.6-16.5); WHITE BLOOD COUNT 3.3 X10^3/uL (3.6-10.0)
--- NOTE | 2017-03-14 07:30 | RAD ---
HISTORY: Chest pain Study: AP portable chest Comparison: March 13, 2017 Findings: The heart is enlarged but unchanged from the prior examination. The aorta is calcified. No congestive heart failure is noted. The boy are normal. The lung palma are clear. No pleural effusions are margie ntified. The bony thorax is unremarkable. IMPRESSION: Cardiomegaly without congestive heart failure Lungs clear Reported By:
[2017-03-14] MEDS: ECOTRIN TAB 325 MG PO SCH (09:54)
[2017-03-14] MEDS ORDERED: PHARMACY CONSULT - TPN XX SCH (10:00)
[2017-03-14] MEDS: ALBUMIN HUMAN 25%- 100ML 100 ML IV SCH (10:08)
[2017-03-14] MEDS: NYSTATIN POWDER TOP SCH ×2 (10:08→20:51)
[2017-03-14] MEDS: NS 1000 ML 1,000 ML IV SCH ×2 (10:09→20:51)
[2017-03-14] MEDS ORDERED: K-RIDER 10 MEQ/NS 100 ML 10 MEQ/100 ML BAG IV PRN (10:39)
[2017-03-14] MEDS ORDERED: K-LYTE EFFERVESCENT PO PRN (10:39)
[2017-03-14] MEDS ORDERED: POTASSIUM CHLORIDE LIQ 20 MEQ UDC PO PRN (10:39)
[2017-03-14] MEDS ORDERED: K-DUR TAB 20 MEQ PO PRN (10:39)
[2017-03-14] MEDS ORDERED: CLINIMIX 4.25 %/10 % 1,000 ML with MVI INJ (ADULT) 10 ML, TRACE ELEMENTS INJ 10 ML, TPN... IV SCH ×5 (11:00)
--- NOTE | 2017-03-14 11:06 | DR.UPDATE ---
H&P Update History and Physical Update: WAS SEEN IN THE OFFICE ON 03/13/17. A H&P WAS COMPLETED PRIOR TO ADMISSION. PATIENT HAS BEEN SEEN AND EXAMINED WITH NO CHANGES NOTED. Changes noted: NO Yes with the following:
[2017-03-14] MEDS ORDERED: PROCALAMINE 3 % 1,000 ML IV SCH ×2 (13:00→15:00)
[2017-03-14] MEDS ORDERED: BENTYL CAP 10 MG PO PRN (19:05)
[2017-03-14] MEDS ORDERED: PATIENT'S HOME MEDICATION (Losartan Potassium [Losartan Potassium] 100 MG) PO SCH (19:15)
[2017-03-14] MEDS ORDERED: TAMOXIFEN CITRATE 10 MG PO SCH (19:15)
[2017-03-14] MEDS: PLAVIX PO SCH (20:49)
[2017-03-14] MEDS: PROTONIX TAB 40 MG PO SCH (20:50)
[2017-03-14] MEDS: VITAMIN D3 PO SCH (20:50)
[2017-03-14] MEDS: TOPROL XL PO SCH (20:50)
[2017-03-14] MEDS ORDERED: LIPITOR TAB 40 MG PO SCH (21:00)
[2017-03-14] MEDS ORDERED: COUMADIN TAB 3 MG PO SCH (21:00)
[2017-03-14] MEDS ORDERED: CHOLECALCIFEROL 5000 UNIT PO SCH (21:00)
[2017-03-14] MEDS ORDERED: PATIENT'S HOME MEDICATION (Atorvastatin Calcium [Lipitor] 1 TAB) PO SCH (21:00)
[2017-03-15] MEDS: NS 1000 ML 1,000 ML IV SCH ×2 (02:58→10:43)
[2017-03-15 06:37] LABS: ALANINE AMINOTRANSFERASE 16 Units/L (12-78); ALBUMIN 2.9 g/dL (3.4-5.0); ALKALINE PHOSPHATASE 24 Units/L (46-116); ASPARTATE AMINO TRANSFERASE 16 Units/L (15-37); BASOPHILS % (AUTO) 0.6 % (0.2-1.0); BLOOD UREA NITROGEN 18 mg/dL (7-18); CALCIUM 8.4 mg/dL (8.5-10.1); CARBON DIOXIDE 25.5 mmol/L (21-32); CHLORIDE 108 mmol/L (98-107); COR CA(FOR HYPOALB) 9.3 mg/dL (8.5-10.1); COR NA(FOR HYPERGLY) 139 mmol/L (136-145); CREATININE 1.02 mg/dL (0.70-1.30); EOSINOPHILS # (AUTO) 0.1 x10^3/uL (0.0-0.2); EOSINOPHILS % (AUTO) 2.3 % (0.9-2.9); HEMATOCRIT 36.6 % (42.0-54.0); HEMOGLOBIN 12.5 g/dL (13.5-18.0); LYMPHOCYTES # (AUTO) 0.5 X10^3/uL (1.3-2.9); LYMPHOCYTES % (AUTO) 12.2 % (21.0-51.0); MEAN CORPUSCULAR HEMOGLOBIN 30.3 pg (27.0-34.0); MEAN CORPUSCULAR HGB CONC 34.1 g/dL (33.0-35.0); MEAN CORPUSCULAR VOLUME 88.9 fL (80.0-100.0); MEAN PLATELET VOLUME 8.9 fL (7.4-11.0); MONOCYTES # (AUTO) 0.5 x10^3/uL (0.3-0.8); NEUTROPHILS # (AUTO) 3.1 x10^3/uL (2.2-4.8); NEUTROPHILS % (AUTO) 73.9 % (42.0-75.0); PLATELET COUNT 108 X10^3/uL (150.0-450.0); RED BLOOD COUNT 4.12 X10^6/uL (4.7-6.0); RED CELL DISTRIBUTION WIDTH 14.5 % (11.6-16.5); SODIUM 138 mmol/L (136-145); TOTAL PROTEIN 5.7 g/dL (6.4-8.2); WHITE BLOOD COUNT 4.2 X10^3/uL (3.6-10.0); eGFR BLACK RACES > 60 (>60); eGFR NON BLACK RACES > 60 (>60)
[2017-03-15] MEDS: ALBUMIN HUMAN 25%- 100ML 100 ML IV SCH (08:55)
[2017-03-15] MEDS: VITAMIN D3 PO SCH (08:57)
[2017-03-15] MEDS: PROTONIX TAB 40 MG PO SCH (08:57)
[2017-03-15] MEDS: TOPROL XL PO SCH (08:58)
[2017-03-15] MEDS ORDERED: COZAAR PO SCH (09:00)
[2017-03-15] MEDS ORDERED: PATIENT'S HOME MEDICATION PO SCH (09:00)
[2017-03-15] MEDS ORDERED: AMARYL TAB 4 MG PO SCH (09:00)
[2017-03-15] MEDS ORDERED: NOLVADEX PO SCH (09:00)
[2017-03-15] MEDS: PLAVIX PO SCH (09:00)
[2017-03-15] MEDS: NYSTATIN POWDER TOP SCH (09:31)
[2017-03-15 17:53] VITALS: BP 160/66
--- NOTE | 2017-03-25 09:57 | PCM.PROG ---
Progress Note - Progress Note for Day of Date: 03/14/17 - Subjective Subjective: WAS ADMITTED FOR CHEST PAIN. HE IS ALERT AND ORIENTED, SITTING UP IN BED ON MORNING ROUNDS. HE IS NOTED WITH COMPLAINTS OF SHORTNESS OF BREATH, BUT DENIES CHEST PAIN ON MORNING ROUNDS. LUNGS ARE CLEAR TO AUSCULTATION. VITALS THIS AM ARE 97.4-58-18-100%-155/73. CBC WNL EXCEPT WBC 3.3 , RBC 4.31, HGB 12.8, HCT 38. INR 1.73. CMP WNL EXCEPT CHLORIDE 109, BUN 21, CALCIUM 8.4, ALKALINE PHOSPHATASE 25, TOTAL PROTEIN 5.5, ALBUMIN 2.7, HCL 35. CARDIAC ENZYMES WNL. CHEST XRAY REPORTS CARDIOMEGALY WITHOUT CHF. WE WILL CONTINUE WITH CURRENT PLAN OF CARE. WE PLAN TO RECHECK AM LABS AND FOLLOW UP WITH PATIENT IN AM. - Past Medical Family Social History Past Med/Fam/Surg Hx: No changes since H&P Allergies: Allergies No Known Drug Allergies Allergy (Verified 03/13/17 19:05) - Review of Systems ROS: No change since H&P - Vital Signs and I&O's Vital Signs: Temperature 98.1 F Pulse Rate [Apical] 60 Respiratory Rate 25 Blood Pressure [Right Arm] 160/66 Blood Pressure [Left Arm] 146/70 Blood Pressure 146/70 O2 Sat by Pulse Oximetry 97 - Physical Exam Oriented: Normal Eyes: Normal Ear: Normal Nose: Normal Throat: Normal Respiratory: Normal Cardiovascular: Normal : Normal Auscultation: Bowel Sounds: Normal Palpation: Normal Tenderness: Normal Skin: Normal Musculoskeletal: Normal Psychiatric: Normal Mood Description: Calm Affect: Normal Speech Pattern: Clear - Laboratory and Diagnostics Result Diagrams: 03/15/17 03:45 03/15/17 03:45 Labs: Laboratory WBC 4.2 X10^3/uL (3.6-10.0) 03/15/17 03:45 RBC 4.12 X10^6/uL (4.7-6.0) L 03/15/17 03:45 Hgb 12.5 g/dL (13.5-18.0) L 03/15/17 03:45 Hct 36.6 % (42.0-54.0) L 03/15/17 03:45 MCV 88.9 fL (80.0-100.0) 03/15/17 03:45 MCH 30.3 pg (27.0-34.0) 03/15/17 03:45 MCHC 34.1 g/dL (33.0-35.0) 03/15/17 03:45 RDW 14.5 % (11.6-16.5) 03/15/17 03:45 Plt Count 108 X10^3/uL (150.0-450.0) L 03/15/17 03:45 MPV 8.9 fL (7.4-11.0) 03/15/17 03:45 Neut % 73.9 % (42.0-75.0) 03/15/17 03:45 Lymph % 12.2 % (21.0-51.0) L 03/15/17 03:45 [place] % 11.0 % (0.0-13.0) 03/15/17 03:45 Eos % 2.3 % (0.9-2.9) 03/15/17 03:45 Baso % 0.6 % (0.2-1.0) 03/15/17 03:45 Neut # 3.1 x10^3/uL (2.2-4.8) 03/15/17 03:45 Lymph # 0.5 X10^3/uL (1.3-2.9) L 03/15/17 03:45 [place] # 0.5 x10^3/uL (0.3-0.8) 03/15/17 03:45 Eos # 0.1 x10^3/uL (0.0-0.2) 03/15/17 03:45 Baso # 0.0 X10^3/uL (0.0-0.1) 03/15/17 03:45 Absolute Nucleated RBC 0.2 /100WBC 03/15/17 03:45 INR Target Range - 03/14/17 03:15 INR 1.73 (0.8-1.3) H 03/14/17 03:15 PTT 30.3 SECONDS (22.9-36.5) 03/14/17 03:15 PTT Comment - 03/14/17 03:15 Sodium 138 mmol/L (136-145) 03/15/17 03:45 Corrected Sodium 139 mmol/L (136-145) 03/15/17 03:45 Potassium 4.0 mmol/L (3.5-5.1) 03/15/17 03:45 Chloride 108 mmol/L (98-107) H 03/15/17 03:45 Carbon Dioxide 25.5 mmol/L (21-32) 03/15/17 03:45 BUN 18 mg/dL (7-18) 03/15/17 03:45 Creatinine 1.02 mg/dL (0.70-1.30) 03/15/17 03:45 Est GFR (MDRD) Af Amer > 60 (>60) 03/15/17 03:45 Est GFR (MDRD) Non-Af > 60 (>60) 03/15/17 03:45 Glucose 131 mg/dL (65-99) H 03/15/17 03:45 Calcium 8.4 mg/dL (8.5-10.1) L 03/15/17 03:45 Corrected Calcium 9.3 mg/dL (8.5-10.1) 03/15/17 03:45 Magnesium 1.7 mg/dL (1.7-2.9) 03/13/17 19:17 Total Bilirubin 0.70 mg/dL (0.2-1.0) 03/15/17 03:45 AST 16 Units/L (15-37) 03/15/17 03:45 ALT 16 Units/L (12-78) 03/15/17 03:45 Alkaline Phosphatase 24 Units/L (46-116) L 03/15/17 03:45 Creatine Kinase 70 Units/L (39-308) 03/14/17 03:15 CK-MB (CK-2) 1.1 ng/mL (0-4.0) 03/14/17 03:15 CK/CKMB % Calc 1.6 % (<4) 03/14/17 03:15 Troponin I < 0.02 ng/mL (0-1.5) 03/14/17 03:15 Total Protein 5.7 g/dL (6.4-8.2) L 03/15/17 03:45 Albumin 2.9 g/dL (3.4-5.0) L 03/15/17 03:45 Globulin 2.8 g/dL (2.5-4.5) 03/15/17 03:45 Albumin/Globulin Ratio 1.0 Ratio (1.1-2.1) L 03/15/17 03:45 Prealbumin 16.5 mg/dL (18-35.7) L 03/14/17 03:15 Triglycerides 114 mg/dL (0-150) 03/14/17 03:15 Cholesterol 148 mg/dL (0-200) 03/14/17 03:15 LDL Cholesterol, Calc 90 mg/dL (0-100) 03/14/17 03:15 HDL Cholesterol 35 mg/dL (40-60) L 03/14/17 03:15 Cholesterol/HDL Ratio 4.2 (0.0-5.0) 03/14/17 03:15 Specimen Type Clean catch urine 03/13/17 21:35 Urine Color Yellow (YELLOW) 03/13/17 21:35 Urine Appearance Clear (CLEAR) 03/13/17 21:35 Urine pH 6.0 (5.0 - 8.0) 03/13/17 21:35 Ur Specific [place] 1.010 (1.000-1.030) 03/13/17 21:35 Urine Protein 1+ (NEGATIVE) 03/13/17 21:35 Urine Glucose (UA) 1+ (NEGATIVE) 03/13/17 21:35 Urine Ketones Negative (NEGATIVE) 03/13/17 21:35 Urine Occult Blood 2+ (NEGATIVE) 03/13/17 21:35 Urine Nitrite Negative (NEGATIVE) 03/13/17 21:35 Urine Bilirubin Negative (NEGATIVE) 03/13/17 21:35 Urine Urobilinogen Normal (NORMAL) 03/13/17 21:35 Ur Leukocyte Esterase 1+ (NEGATIVE) 03/13/17 21:35 Urine RBC 2-6 /HPF (NEGATIVE) 03/13/17 21:35 Urine WBC 2-6 /HPF (NEGATIVE) 03/13/17 21:35 Ur Squamous Epith Cells Moderate /HPF (NEGATIVE) 03/13/17 21:35 Urine Bacteria Negative /HPF (NEGATIVE) 03/13/17 21:35 Ur Culture Indicated? No/not indicated 03/13/17 21:35 - Plan (1) Chest pain Status: Acute Qualifiers: Chest pain type: unspecified Qualified Code(s): R07.9 - Chest pain, unspecified Plan: SERIAL CARDIAC ENZYMES AND EKG, CONTINUE TO MONITOR
== END 2017-03-15 18:35 | disposition home or self-care (01) ==
LOC: INTOOBSV 17:27 → ICU 17:27
PROVIDERS: ADMIT Internal Medicine; ATTEND Internal Medicine
DX: R07.89 Other chest pain (principal); I20.8 Other forms of angina pectoris; E11.65 Type 2 diabetes mellitus with hyperglycemia; I10 Essential (primary) hypertension; I50.9 Heart failure, unspecified; K21.9 Gastro-esophageal reflux disease without esophagitis; Z86.711 Personal history of pulmonary embolism; Z79.01 Long term (current) use of anticoagulants; R94.31 Abnormal electrocardiogram [ECG] [EKG]; D64.89 Other specified anemias; R79.1 Abnormal coagulation profile; R06.02 Shortness of breath; I51.7 Cardiomegaly
CPT/HCPCS: 36415; 71010; 80053; 80061; 81001; 82550; 82553; 83735; 84134; 84484; 85025; 85610; 85730; 93005; A4216; A4222; B4189; B5200; P9047; G0378

== ENCOUNTER 2017-03-26 10:10 | Inpatient (IN) | payer OTHER, BC ==
[2017-03-26 10:21] VITALS: BMI 28.8
[2017-03-26] MEDS ORDERED: ASPIRIN 81 MG CHEWTAB ONE (10:22)
[2017-03-26] MEDS ORDERED: NITROSTAT SL ONE ×2 (10:22→10:25)
--- NOTE | 2017-03-26 10:24 | DR.GENAD ---
HPI - PCP Primary Care Physician: DR. HERNANDEZ - Complaint/Symptoms Chief Complaint Doctors Comments: Patient admits to chest pain of two days duration worse today. Admits to midsternal pain, and right shoulder. 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 Chief Complaint:: PATIENT STATED THAT HE HAS BEEN HAVING CHEST PAIN THAT STARTED SOMETIME DURING THE NIGHT. PAIENT FAMILY STATED THAT HE WAS JUST IN THE HOSPITAL ABOUT 2 WEEKS AGO WITH THE SAMETHING. - Source History Provided: Patient, Family Member - Mode of Arrival Mode of Arrival: Wheelchair - Timing Onset of Chief Complaint: 03/26/17 PMH - PMH Past Medical History: Yes Past Medical History: Anemia, Angina, CHF, Coronary Artery Disease, Diabetes, Dyslipidemia, Hypertension Past Surgical History: Yes Surgical History: Angioplasty/Stents, Cholecystectomy, Other - Family History History of Family Medical Conditions: Yes Family Medical History: Diabetes Mellitus, [place] - Social History Does patient currently use any type of tobacco product: No Have you used tobacco products in the last 12 months: No Does any household member use tobacco: No Alcohol Use: None Do you use any recreational Drugs:: No Lives With: Family Lives Where: Home - infectious screening In the last 2 months have you had wt loss of >10#?: NO Have you had fever, night sweats or hemotysis?: No Have you traveled outside the country in the last 6 months?: No Isolation: Standard ROS - Review of Systems Eyes: No Symptoms Reported ENTM: No Symptoms Reported Respiratoy: Productive Cough Cardiovascular: No Symptoms Reported Gastrointestinal/Abdominal: No Symptoms Reported Genitourinary: No Symptoms Reported Neurological: No Symptoms Reported Musculoskeletal: No Symptoms Reported Integumentary: No Symptoms Reported Hematologic/Lymphatic: No Symptoms Reported Endocrine: No Symptoms Reported Psychiatric: No Symptoms Reported All Other Systems: Reviewed and Negative PE - Vital Signs Vitals: Temperature 98.2 F Pulse Rate [Apical] 58 Pulse Rate 67 Respiratory Rate 22 Blood Pressure [Right Arm] 141/67 Blood Pressure [Left Arm] 146/70 Blood Pressure 162/79 O2 Sat by Pulse Oximetry 100 - General Limitations: No Limitations General Appearance: Alert, In No Apparent Distress - Head Head Exam: Normal Inspection, Atraumatic - Eyes Eye exam: Normal Appearance, PERRL, EOMI - ENT ENT Exam: Normal Exam, Normal Oropharynx External Ear Exam: Normal External Inspection TM/Canal Exam: Bilateral Normal Nose Exam: Normal Nose Exam Mouth Exam: Normal Inspection Throat Exam: Normal Inspection - Neck Neck Exam: Normal Inspection, Full ROM - Chest Chest Inspection: Normal Inspection, Symmetric Chest Wall Rise - Respiratory Respiratory Exam: Normal Lung Sounds Bilat, Accessory Muscle Use Respiratory Exam: Bilateral Clear to Auscultation - Cardiovascular Cardiovascular Exam: Regular Rate - Abdominal Exam Abdominal Exam: Normal Inspection, Normal Bowel Sounds Abdominal Tenderness: negative: RUQ, RLQ, LUQ, LLQ, Epigastrium, Suprapubic, Diffuse, Mild, Moderate, Severe, Other - Extremities Extremities Exam: Normal Inspection, Full ROM - Back Back Exam: Normal Inspection, Full ROM - Neurologic Neurological Exam: Alert, Oriented X3, CN II-XII Intact - Psychiatric Psychiatric Exam: Normal Affect - Skin Skin Exam: Warm, Dry, Intact Course - Consultation Called: 11:30 (Dr Hernandez recommended observation) ROR - Labs Reviewed Result Diagrams: 03/26/17 11:15 03/26/17 10:30 Laboratory: WBC 4.5 X10^3/uL (3.6-10.0) 03/26/17 11:15 RBC 4.25 X10^6/uL (4.7-6.0) L 03/26/17 11:15 Hgb 12.9 g/dL (13.5-18.0) L 03/26/17 11:15 Hct 38.0 % (42.0-54.0) L 03/26/17 11:15 MCV 89.4 fL (80.0-100.0) 03/26/17 11:15 MCH 30.4 pg (27.0-34.0) 03/26/17 11:15 MCHC 34.0 g/dL (33.0-35.0) 03/26/17 11:15 RDW 14.2 % (11.6-16.5) 03/26/17 11:15 Plt Count 135 X10^3/uL (150.0-450.0) L 03/26/17 11:15 MPV 8.5 fL (7.4-11.0) 03/26/17 11:15 Neut % 72.2 % (42.0-75.0) 03/26/17 11:15 Lymph % 14.8 % (21.0-51.0) L 03/26/17 11:15 [place] % 9.8 % (0.0-13.0) 03/26/17 11:15 Eos % 2.4 % (0.9-2.9) 03/26/17 11:15 Baso % 0.8 % (0.2-1.0) 03/26/17 11:15 Neut # 3.3 x10^3/uL (2.2-4.8) 03/26/17 11:15 Lymph # 0.7 X10^3/uL (1.3-2.9) L 03/26/17 11:15 [place] # 0.4 x10^3/uL (0.3-0.8) 03/26/17 11:15 Eos # 0.1 x10^3/uL (0.0-0.2) 03/26/17 11:15 Baso # 0.0 X10^3/uL (0.0-0.1) 03/26/17 11:15 Absolute Nucleated RBC 0.1 /100WBC 03/26/17 11:15 INR Target Range - 03/26/17 10:30 INR 1.14 (0.8-1.3) 03/26/17 10:30 PTT 18.7 SECONDS (22.9-36.5) L 03/26/17 10:30 PTT Comment - 03/26/17 10:30 Sodium 142 mmol/L (136-145) 03/26/17 10:30 Corrected Sodium 144 mmol/L (136-145) 03/26/17 10:30 Potassium 3.9 mmol/L (3.5-5.1) 03/26/17 10:30 Chloride 108 mmol/L (98-107) H 03/26/17 10:30 Carbon Dioxide 29.0 mmol/L (21-32) 03/26/17 10:30 BUN 23 mg/dL (7-18) H 03/26/17 10:30 Creatinine 1.24 mg/dL (0.70-1.30) 03/26/17 10:30 Est GFR (MDRD) Af Amer > 60 (>60) 03/26/17 10:30 Est GFR (MDRD) Non-Af 59 (>60) 03/26/17 10:30 Glucose 184 mg/dL (65-99) H 03/26/17 10:30 Calcium 9.0 mg/dL (8.5-10.1) 03/26/17 10:30 Corrected Calcium 9.7 mg/dL (8.5-10.1) 03/26/17 10:30 Magnesium 1.7 mg/dL (1.7-2.9) 03/26/17 10:30 Total Bilirubin 0.50 mg/dL (0.2-1.0) 03/26/17 10:30 AST 13 Units/L (15-37) L 03/26/17 10:30 ALT 16 Units/L (12-78) 03/26/17 10:30 Alkaline Phosphatase 33 Units/L (46-116) L 03/26/17 10:30 Creatine Kinase 54 Units/L (39-308) 03/26/17 10:30 CK-MB (CK-2) 0.7 ng/mL (0-4.0) 03/26/17 10:30 CK/CKMB % Calc 1.3 % (<4) 03/26/17 10:30 Troponin I < 0.02 ng/mL (0-1.5) 03/26/17 10:30 B-Natriuretic Peptide 223 pg/mL (0-79) H 03/26/17 10:30 Total Protein 6.3 g/dL (6.4-8.2) L 03/26/17 10:30 Albumin 3.1 g/dL (3.4-5.0) L 03/26/17 10:30 Globulin 3.2 g/dL (2.5-4.5) 03/26/17 10:30 Albumin/Globulin Ratio 1.0 Ratio (1.1-2.1) L 03/26/17 10:30 - XRAY XRAY Interpreted by: Radiologist (Chest: no acute cardiopulmonary disease) - Diagnosis Discharge Problem: Chest pain Qualifiers: Chest pain type: chest pain due to myocardial ischemia Ischemic chest pain type : unstable angina pectoris Qualified Code(s): I20.0 - Unstable angina - Discharge Plan Condition: Stable - Follow ups/Referrals Follow ups/Referrals: Pacheco Hernandez [Primary Care Provider] - 3 days - Instructions
[2017-03-26] MEDS ORDERED: ASPIRIN 81 MG CHEWTAB PO ONE (10:29)
--- NOTE | 2017-03-26 10:50 | RAD ---
HISTORY: Chest pain Study: Single view chest Comparison: 03/14/2017 Findings: Single portable view is submitted. The lungs are clear without consolidation, effusion or pneumothora x. There is prominent epicardial fat present. The soft tissues are unremarkable. IMPRESSION: 1. No acute cardiopulmonary abnormality. Reported By:
[2017-03-26 10:55] LABS: BLOOD UREA NITROGEN 23 mg/dL (7-18); CHLORIDE 108 mmol/L (98-107); COR NA(FOR HYPERGLY) 144 mmol/L (136-145); CREATININE 1.24 mg/dL (0.70-1.30); SODIUM 142 mmol/L (136-145); TROPONIN I < 0.02 ng/mL (0-1.5); eGFR BLACK RACES > 60 (>60); eGFR NON BLACK RACES 59 (>60)
[2017-03-26 11:07] LABS: B-TYPE NATRIURETIC PEPTIDE 223 pg/mL (0-79)
[2017-03-26 11:11] LABS: ALANINE AMINOTRANSFERASE 16 Units/L (12-78); ALBUMIN 3.1 g/dL (3.4-5.0); ALKALINE PHOSPHATASE 33 Units/L (46-116); ASPARTATE AMINO TRANSFERASE 13 Units/L (15-37); COR CA(FOR HYPOALB) 9.7 mg/dL (8.5-10.1); CREATINE KINASE 54 Units/L (39-308); TOTAL PROTEIN 6.3 g/dL (6.4-8.2)
[2017-03-26 11:24] LABS: BASOPHILS % (AUTO) 0.8 % (0.2-1.0); EOSINOPHILS # (AUTO) 0.1 x10^3/uL (0.0-0.2); EOSINOPHILS % (AUTO) 2.4 % (0.9-2.9); HEMOGLOBIN 12.9 g/dL (13.5-18.0); LYMPHOCYTES # (AUTO) 0.7 X10^3/uL (1.3-2.9); LYMPHOCYTES % (AUTO) 14.8 % (21.0-51.0); MEAN CORPUSCULAR HEMOGLOBIN 30.4 pg (27.0-34.0); MEAN CORPUSCULAR VOLUME 89.4 fL (80.0-100.0); MEAN PLATELET VOLUME 8.5 fL (7.4-11.0); MONOCYTES # (AUTO) 0.4 x10^3/uL (0.3-0.8); MONOCYTES % (AUTO) 9.8 % (0.0-13.0); NEUTROPHILS # (AUTO) 3.3 x10^3/uL (2.2-4.8); NEUTROPHILS % (AUTO) 72.2 % (42.0-75.0); PLATELET COUNT 135 X10^3/uL (150.0-450.0); RED BLOOD COUNT 4.25 X10^6/uL (4.7-6.0); RED CELL DISTRIBUTION WIDTH 14.2 % (11.6-16.5); WHITE BLOOD COUNT 4.5 X10^3/uL (3.6-10.0)
[2017-03-26 11:34] LABS: CKMB % 1.3 % (<4); CREATINE KINASE MB 0.7 ng/mL (0-4.0)
[2017-03-26] MEDS ORDERED: ZOFRAN INJ 4 MG VIAL IVP PRN (12:34)
[2017-03-26] MEDS ORDERED: MORPHINE SULFATE INJ 2 MG INJ IVP PRN (12:34)
[2017-03-26] MEDS: BENTYL CAP 10 MG PO SCH ×2 (14:58→21:48)
[2017-03-26] MEDS: NS 1000 ML 1,000 ML IV SCH (14:58)
[2017-03-26 17:20] LABS: CREATINE KINASE 50 Units/L (39-308); CREATINE KINASE MB < 1.0 ng/mL (0-4.0); TROPONIN I 0.02 ng/mL (0-1.5)
[2017-03-26] MEDS ORDERED: PATIENT'S HOME MEDICATION (Atorvastatin Calcium [Lipitor] 1 TAB) PO SCH (21:00)
[2017-03-26] MEDS ORDERED: CHOLECALCIFEROL 5000 UNIT PO SCH (21:00)
[2017-03-26] MEDS: LIPITOR TAB 40 MG PO SCH (21:48)
[2017-03-26] MEDS: VITAMIN D3 PO SCH (21:53)
[2017-03-26 22:46] LABS: CKMB % 2.1 % (<4); CREATINE KINASE 48 Units/L (39-308); CREATINE KINASE MB < 1.0 ng/mL (0-4.0); TROPONIN I 0.03 ng/mL (0-1.5)
[2017-03-27] MEDS: NS 1000 ML 1,000 ML IV SCH ×2 (03:27→16:44)
[2017-03-27] MEDS: BENTYL CAP 10 MG PO SCH ×3 (05:27→21:02)
[2017-03-27 06:11] LABS: BASOPHILS % (AUTO) 0.7 % (0.2-1.0); EOSINOPHILS # (AUTO) 0.1 x10^3/uL (0.0-0.2); EOSINOPHILS % (AUTO) 3.8 % (0.9-2.9); HEMATOCRIT 33.2 % (42.0-54.0); HEMOGLOBIN 11.7 g/dL (13.5-18.0); LYMPHOCYTES # (AUTO) 0.6 X10^3/uL (1.3-2.9); LYMPHOCYTES % (AUTO) 14.8 % (21.0-51.0); MEAN CORPUSCULAR HEMOGLOBIN 30.6 pg (27.0-34.0); MEAN CORPUSCULAR HGB CONC 35.2 g/dL (33.0-35.0); MEAN CORPUSCULAR VOLUME 86.9 fL (80.0-100.0); MEAN PLATELET VOLUME 8.6 fL (7.4-11.0); MONOCYTES # (AUTO) 0.4 x10^3/uL (0.3-0.8); NEUTROPHILS # (AUTO) 2.8 x10^3/uL (2.2-4.8); NEUTROPHILS % (AUTO) 71.7 % (42.0-75.0); PLATELET COUNT 124 X10^3/uL (150.0-450.0); RED BLOOD COUNT 3.82 X10^6/uL (4.7-6.0); RED CELL DISTRIBUTION WIDTH 14.4 % (11.6-16.5); WHITE BLOOD COUNT 3.9 X10^3/uL (3.6-10.0)
[2017-03-27 07:01] LABS: ALANINE AMINOTRANSFERASE 15 Units/L (12-78); ALBUMIN 2.5 g/dL (3.4-5.0); ALKALINE PHOSPHATASE 25 Units/L (46-116); ASPARTATE AMINO TRANSFERASE 11 Units/L (15-37); BLOOD UREA NITROGEN 20 mg/dL (7-18); CALCIUM 8.2 mg/dL (8.5-10.1); CARBON DIOXIDE 25.2 mmol/L (21-32); CHLORIDE 109 mmol/L (98-107); CHOLESTEROL 121 mg/dL (0-200); COR CA(FOR HYPOALB) 9.4 mg/dL (8.5-10.1); COR NA(FOR HYPERGLY) 143 mmol/L (136-145); CREATININE 1.01 mg/dL (0.70-1.30); HDL CHOLESTEROL 30 mg/dL (40-60); SODIUM 142 mmol/L (136-145); TOTAL PROTEIN 5.2 g/dL (6.4-8.2); TRIGLYCERIDES 122 mg/dL (0-150); eGFR BLACK RACES > 60 (>60); eGFR NON BLACK RACES > 60 (>60)
[2017-03-27] MEDS ORDERED: TAMOXIFEN CITRATE 10 MG PO SCH (09:00)
[2017-03-27] MEDS ORDERED: COUMADIN TAB 3 MG PO SCH (09:00)
[2017-03-27] MEDS ORDERED: PATIENT'S HOME MEDICATION (Losartan Potassium [Losartan Potassium] 100 MG) PO SCH (09:00)
[2017-03-27] MEDS ORDERED: LOPRESSOR INJ 5 MG AMP IVP PRN (09:06)
[2017-03-27] MEDS: COZAAR PO SCH (09:34)
[2017-03-27] MEDS: TOPROL XL PO SCH (09:34)
[2017-03-27] MEDS: COUMADIN TAB 5 MG PO SCH ×2 (09:34→20:56)
[2017-03-27] MEDS: VITAMIN D3 PO SCH ×2 (09:34→20:57)
[2017-03-27] MEDS: PROTONIX TAB 40 MG PO SCH (09:35)
[2017-03-27] MEDS: PLAVIX PO SCH (09:35)
[2017-03-27] MEDS: AMARYL TAB 4 MG PO SCH (09:35)
[2017-03-27] MEDS ORDERED: HEPARIN SODIUM INJ 5000 UNITS ONE (09:58)
[2017-03-27] MEDS: HEPARIN SODIUM IN D5W 25,000 UNITS/500 ML BAG IV PRN (10:05)
[2017-03-27] MEDS ORDERED: HEPARIN SODIUM INJ 5000 UNITS IVP ONE (10:10)
[2017-03-27] MEDS ORDERED: ASPIRIN 81 MG CHEWTAB PO ONE (10:25)
--- NOTE | 2017-03-27 12:06 | DR.H&P ---
H&P - History & Physical for Day of: H&P Date: 03/26/17 - Chief Complaint Chief Complaint: IS A 86 YEAR OLD PATIENT OF OURS WHO PRESENTED TO THE EMERGENCY ROOM WITH COMPLAINTS OF CHEST PAIN THAT STARTED TWO DAYS PRIOR TO ARRIVAL TO ER. HE REPORTS MIDSTERNAL CHEST PAIN THAT RADIATES TO RIGHT SHOULDER. HE HAS A HISTORY OF THREE VESSEL DISEASEE WITH 100% BLOCKAGE IN TWO OF THE VESSELS AND 80% BLOCKAGE IN THE OTHER. PATIENT WAS RECENTLY IN THE HOSPITAL WITH THE SAME COMPLAINT. ON ARRIVAL TO ER, VITALS WERE 98.2-67-18-97%- 162/79. LABS, XRAY, AND EKG WERE OBTAINED. ABNORMAL LABS INCLUDE THE FOLLOWING: RBC 4.25, HGB 12.9, HCT 38, PTT 18.7, SODIUM 142, CHLORIDE 108, BUN 23, GLUCOSE 184, AST 13, ALK PHOS 33, BNP 223, TOTAL PROTEIN 6.3, ALBUMIN 3.1. CARDIAC ENZYMES WNL. CHEST XRAY CLEAR WITH NO ACUTE CARDIOVASCULAR DISEASE. EKG REPORTS SINUS RHYTHM WITH RATE OF 63. HE WAS GIVEN ASPIRIN AND NITRO IN ER. WE ADMITTED PATIENT FOR FURTHER TREATMENT AND EVALUATION. WE STARTED HIM ON NS AT 75ML/HR, MORPHINE 2MG IV Q4H PRN, ZOFRAN 4MG IV Q8H PRN, AND RESTARTED HIS HOME MEDICATIONS. WE PLAN TO RECHECK AM LABS AND CONTINUE TO MONITOR PATIENT. - Allergies Allergies/Adverse Reactions: Allergies Allergy/AdvReac Type Severity Reaction Status Date / Time No Known Drug Allergies Allergy Verified 03/26/17 10:11 - Past Medical History Past Medical History: Anemia, Angina, CHF, Coronary Artery Disease, Diabetes, Dyslipidemia, Hypertension Additional Medical History: Hx Gastrointestinal Ulcer, BPH, Hx multiple PE's, Pulmonary HTN, Hx Prostate Cancer, TIA, Diverticulosis, Muscle Weakness, Back Pain, Previous Blood Transfusion, Prostate Cancer - Past Surgical History Surgical History: Angioplasty/Stents, Cholecystectomy Additional Surgical History: Cataract Removal, IVC Filter, Heart Cath 06/2016 - Family History Family Medical History: Diabetes Mellitus, [place] - Social History Does patient currently use any type of tobacco product: Yes Have you used tobacco products in the last 12 months: Yes Type of Tobacco Use: Smokeless How many years tobacco product used: 60 Does any household member use tobacco: No Alcohol Use: None Drug Use: Prescription Drugs - Medications Home Medications: Misc Home Med [Patient's Home Medication] 1 ea PO DAILY 03/26/17 [History Confirmed 03/26/17] - Review of Systems Constitutional: No Symptoms Reported Eyes: No Symptoms Reported ENT: No Symptoms Reported Respiratory: See HPI, Cough, Shortness of Breath Cardiovascular: Chest Pain, See HPI Gastrointestinal: No Symptoms Reported Genitourinary: No Symptoms Reported Musculoskeletal: No Symptoms Reported Skin: No Symptoms Reported Neurological: No Symptoms Reported - Physical Exam Vital Signs: Temperature 98.0 F Pulse Rate [Apical] 63 Pulse Rate 67 Respiratory Rate 21 Blood Pressure [Right Arm] 151/68 Blood Pressure [Left Arm] 146/70 Blood Pressure 162/79 O2 Sat by Pulse Oximetry 100 Oriented: Normal Eyes: Normal Ear: Normal Nose: Normal Throat: Normal Respiratory: Clear Throughout Cardiovascular: Normal : Normal Auscultation: Bowel Sounds: Normal Palpation: Normal Tenderness: Normal Skin: Normal Musculoskeletal: Normal Psychiatric: Normal Mood Description: Calm Affect: Normal Speech Pattern: Clear - Assessment/Plan (1) Chest pain Qualifiers: Chest pain type: chest pain due to myocardial ischemia Ischemic chest pain type: unstable angina pectoris Qualified Code(s): I20.0 - Unstable angina Status: Acute Plan: SERIAL CARDIAC ENZYMES AND EKG, TELEMETRY, SUPPLEMENTAL OXYGEN, CONTINUE TO MONITOR
[2017-03-27] MEDS: NAPROSYN PO SCH ×2 (12:46→21:02)
[2017-03-27] MEDS: NOLVADEX PO SCH (12:46)
[2017-03-27] MEDS: LIPITOR TAB 40 MG PO SCH (20:56)
[2017-03-27] MEDS ORDERED: ZANAFLEX PO SCH (21:00)
--- NOTE | 2017-03-27 21:38 | PCM.PROG ---
Progress Note - Progress Note for Day of Date: 03/27/17 - Subjective Subjective: WAS ADMITTED FOR CHEST PAIN. HE IS ALERT AND ORIENTED, LYING IN BED ON MORNING ROUNDS. AT BEDSIDE. HE CONTINUES WITH COMPLAINTS OF MIDSTERNAL CHEST PAIN AND SHORTNESS OF BREATH. HE IS NOTED WITH NASAL CANNULA WITH O2 AT 2LPM. LUNGS ARE CLEAR TO AUSCULATATION. VITALS THIS AM ARE 98.0-57-20-100%-148/74. ABNORMAL LAB VALUES THIS MORNING INCLUDE THE FOLLOWING: RBC 3.82, HCT 33.2, BUN 20, GLUCOSE 144, AST 11, ALK PHOS 25, TOTAL PROTEIN 5.2 , ALBUMIN 2.5, INR 1.33. SERIAL CARDIAC ENZYMES AND EKG WNL. MOST RECENT EKG REPORTS SINYS RHYTHM, MULTIPLE PVC, RBBB, LEFT VENTRICULAR HYPERTROPHY WITH HR OF 62. WE PLAN TO MOVE PATIENT TO ICU TO START ON HEPARIN DRIP, OBTAIN A CARDIAC CTA, INCREASE COUMADIN TO 5MG HS, AND ADMINISTER METOPROLOL 5MG IV 30 MINUTES PRIOR TO CTA. WE WILL CONTINUE TO MONITOR PATIENT AND OBTAIN AM LABS. - Past Medical Family Social History Past Med/Fam/Surg Hx: No changes since H&P Allergies: Allergies No Known Drug Allergies Allergy (Verified 03/26/17 10:11) - Review of Systems ROS: No change since H&P - Vital Signs and I&O's Vital Signs: Temperature 99.1 F Pulse Rate [Apical] 56 Pulse Rate 67 Respiratory Rate 26 Blood Pressure [Right Arm] 149/74 Blood Pressure [Left Arm] 146/70 Blood Pressure 162/79 O2 Sat by Pulse Oximetry 100 Intake and Output: Intake & Output 03/25/17 03/26/17 03/27/17 03/28/17 11:59 11:59 11:59 11:59 Intake Total 1632 1841 Output Total 600 200 Balance 1032 1641 - Physical Exam Oriented: Normal Eyes: Normal Ear: Normal Nose: Normal Throat: Normal Respiratory: Normal Cardiovascular: Normal : Normal Auscultation: Bowel Sounds: Normal Palpation: Normal Tenderness: Normal Skin: Normal Musculoskeletal: Normal Psychiatric: Normal Mood Description: Calm Affect: Normal Speech Pattern: Clear - Laboratory and Diagnostics Result Diagrams: 03/27/17 04:30 03/27/17 04:30 Labs: Laboratory WBC 3.9 X10^3/uL (3.6-10.0) 03/27/17 04:30 RBC 3.82 X10^6/uL (4.7-6.0) L 03/27/17 04:30 Hgb 11.7 g/dL (13.5-18.0) L 03/27/17 04:30 Hct 33.2 % (42.0-54.0) L 03/27/17 04:30 MCV 86.9 fL (80.0-100.0) 03/27/17 04:30 MCH 30.6 pg (27.0-34.0) 03/27/17 04:30 MCHC 35.2 g/dL (33.0-35.0) H 03/27/17 04:30 RDW 14.4 % (11.6-16.5) 03/27/17 04:30 Plt Count 124 X10^3/uL (150.0-450.0) L 03/27/17 04:30 MPV 8.6 fL (7.4-11.0) 03/27/17 04:30 Neut % 71.7 % (42.0-75.0) 03/27/17 04:30 Lymph % 14.8 % (21.0-51.0) L 03/27/17 04:30 [place] % 9.0 % (0.0-13.0) 03/27/17 04:30 Eos % 3.8 % (0.9-2.9) H 03/27/17 04:30 Baso % 0.7 % (0.2-1.0) 03/27/17 04:30 Neut # 2.8 x10^3/uL (2.2-4.8) 03/27/17 04:30 Lymph # 0.6 X10^3/uL (1.3-2.9) L 03/27/17 04:30 [place] # 0.4 x10^3/uL (0.3-0.8) 03/27/17 04:30 Eos # 0.1 x10^3/uL (0.0-0.2) 03/27/17 04:30 Baso # 0.0 X10^3/uL (0.0-0.1) 03/27/17 04:30 Absolute Nucleated RBC 0.0 /100WBC 03/27/17 04:30 INR Target Range - 03/27/17 04:30 INR 1.33 (0.8-1.3) H 03/27/17 04:30 PTT 163.5 SECONDS (22.9-36.5) H* 03/27/17 17:16 PTT Comment - 03/27/17 17:16 Sodium 142 mmol/L (136-145) 03/27/17 04:30 Corrected Sodium 143 mmol/L (136-145) 03/27/17 04:30 Potassium 3.5 mmol/L (3.5-5.1) 03/27/17 04:30 Chloride 109 mmol/L (98-107) H 03/27/17 04:30 Carbon Dioxide 25.2 mmol/L (21-32) 03/27/17 04:30 BUN 20 mg/dL (7-18) H 03/27/17 04:30 Creatinine 1.01 mg/dL (0.70-1.30) 03/27/17 04:30 Est GFR (MDRD) Af Amer > 60 (>60) 03/27/17 04:30 Est GFR (MDRD) Non-Af > 60 (>60) 03/27/17 04:30 Glucose 144 mg/dL (65-99) H 03/27/17 04:30 Calcium 8.2 mg/dL (8.5-10.1) L 03/27/17 04:30 Corrected Calcium 9.4 mg/dL (8.5-10.1) 03/27/17 04:30 Magnesium 1.7 mg/dL (1.7-2.9) 03/26/17 10:30 Total Bilirubin 0.50 mg/dL (0.2-1.0) 03/27/17 04:30 AST 11 Units/L (15-37) L 03/27/17 04:30 ALT 15 Units/L (12-78) 03/27/17 04:30 Alkaline Phosphatase 25 Units/L (46-116) L 03/27/17 04:30 Creatine Kinase 48 Units/L (39-308) 03/26/17 22:18 CK-MB (CK-2) < 1.0 ng/mL (0-4.0) 03/26/17 22:18 CK/CKMB % Calc 2.1 % (<4) 03/26/17 22:18 Troponin I 0.03 ng/mL (0-1.5) 03/26/17 22:18 B-Natriuretic Peptide 223 pg/mL (0-79) H 03/26/17 10:30 Total Protein 5.2 g/dL (6.4-8.2) L 03/27/17 04:30 Albumin 2.5 g/dL (3.4-5.0) L 03/27/17 04:30 Globulin 2.7 g/dL (2.5-4.5) 03/27/17 04:30 Albumin/Globulin Ratio 0.9 Ratio (1.1-2.1) L 03/27/17 04:30 Triglycerides 122 mg/dL (0-150) 03/27/17 04:30 Cholesterol 121 mg/dL (0-200) 03/27/17 04:30 LDL Cholesterol, Calc 67 mg/dL (0-100) 03/27/17 04:30 HDL Cholesterol 30 mg/dL (40-60) L 03/27/17 04:30 Cholesterol/HDL Ratio 4.0 (0.0-5.0) 03/27/17 04:30 H. pylori IgG Antibody Negative (NEGATIVE) 03/27/17 04:30 - Plan (1) Chest pain Status: Acute Qualifiers: Chest pain type: chest pain due to myocardial ischemia Ischemic chest pain type: unstable angina pectoris Qualified Code(s): I20.0 - Unstable angina Plan: START HEPARIN DRIP, TELEMETRY, SUPPLEMENTAL OXYGEN, OBTAIN CARDIAC CTA, CONTINUE TO MONITOR
[2017-03-28 05:13] LABS: BASOPHILS % (AUTO) 0.9 % (0.2-1.0); EOSINOPHILS # (AUTO) 0.1 x10^3/uL (0.0-0.2); EOSINOPHILS % (AUTO) 4.6 % (0.9-2.9); HEMATOCRIT 30.9 % (42.0-54.0); HEMOGLOBIN 10.7 g/dL (13.5-18.0); LYMPHOCYTES # (AUTO) 0.7 X10^3/uL (1.3-2.9); LYMPHOCYTES % (AUTO) 21.8 % (21.0-51.0); MEAN CORPUSCULAR HEMOGLOBIN 30.5 pg (27.0-34.0); MEAN CORPUSCULAR HGB CONC 34.6 g/dL (33.0-35.0); MEAN CORPUSCULAR VOLUME 88.2 fL (80.0-100.0); MEAN PLATELET VOLUME 8.7 fL (7.4-11.0); MONOCYTES # (AUTO) 0.3 x10^3/uL (0.3-0.8); MONOCYTES % (AUTO) 9.3 % (0.0-13.0); NEUTROPHILS # (AUTO) 1.9 x10^3/uL (2.2-4.8); NEUTROPHILS % (AUTO) 63.4 % (42.0-75.0); PLATELET COUNT 115 X10^3/uL (150.0-450.0); RED BLOOD COUNT 3.51 X10^6/uL (4.7-6.0); RED CELL DISTRIBUTION WIDTH 14.4 % (11.6-16.5)
[2017-03-28 05:19] LABS: ALANINE AMINOTRANSFERASE 11 Units/L (12-78); ALBUMIN 2.5 g/dL (3.4-5.0); ALKALINE PHOSPHATASE 23 Units/L (46-116); ASPARTATE AMINO TRANSFERASE 11 Units/L (15-37); BLOOD UREA NITROGEN 20 mg/dL (7-18); CALCIUM 7.9 mg/dL (8.5-10.1); CARBON DIOXIDE 23.5 mmol/L (21-32); CHLORIDE 109 mmol/L (98-107); COR CA(FOR HYPOALB) 9.1 mg/dL (8.5-10.1); COR NA(FOR HYPERGLY) 142 mmol/L (136-145); SODIUM 140 mmol/L (136-145); TOTAL PROTEIN 4.8 g/dL (6.4-8.2); eGFR BLACK RACES > 60 (>60); eGFR NON BLACK RACES > 60 (>60)
[2017-03-28] MEDS: BENTYL CAP 10 MG PO SCH (05:36)
[2017-03-28] MEDS ORDERED: NYSTATIN POWDER ONE (05:39)
[2017-03-28] MEDS: NS 1000 ML 1,000 ML IV SCH (05:40)
[2017-03-28] MEDS: NYSTATIN POWDER TOP SCH ×3 (05:41→09:32)
[2017-03-28] MEDS ORDERED: PATIENT'S HOME MEDICATION PO SCH (09:00)
[2017-03-28] MEDS: AMARYL TAB 4 MG PO SCH (09:28)
[2017-03-28] MEDS: COZAAR PO SCH (09:28)
[2017-03-28] MEDS: VITAMIN D3 PO SCH (09:28)
[2017-03-28] MEDS: TOPROL XL PO SCH (09:29)
[2017-03-28] MEDS: PROTONIX TAB 40 MG PO SCH (09:29)
[2017-03-28] MEDS: NAPROSYN PO SCH (09:29)
[2017-03-28] MEDS: NOLVADEX PO SCH (09:30)
[2017-03-28] MEDS: PLAVIX PO SCH (09:30)
[2017-03-28] MEDS: HEPARIN SODIUM IN D5W 25,000 UNITS/500 ML BAG IV PRN (10:25)
[2017-03-28] MEDS ORDERED: K-DUR TAB 20 MEQ PO PRN (11:16)
[2017-03-28] MEDS ORDERED: K-RIDER 10 MEQ/NS 100 ML 10 MEQ/100 ML BAG IV PRN (11:16)
[2017-03-28] MEDS ORDERED: K-LYTE EFFERVESCENT PO PRN (11:16)
[2017-03-28] MEDS ORDERED: POTASSIUM CHLORIDE LIQ 20 MEQ UDC PO PRN (11:16)
[2017-03-28 11:41] VITALS: BP 164/78
== END 2017-03-28 11:35 | disposition short-term general hospital (02) | DRG 311 ==
LOC: ER 10:13 → MED/SURG 12:50 → OBSVTOIN 03-27 09:00 → ICU 03-27 09:55
PROVIDERS: ADMIT Internal Medicine; ATTEND Internal Medicine
DX: I20.0 Unstable angina (principal); R07.89 Other chest pain; M25.511 Pain in right shoulder; E11.65 Type 2 diabetes mellitus with hyperglycemia; E78.2 Mixed hyperlipidemia; I10 Essential (primary) hypertension; R94.31 Abnormal electrocardiogram [ECG] [EKG]; R06.02 Shortness of breath
CPT/HCPCS: 36415; 71010; 80053; 80061; 82550; 82553; 83735; 83880; 84484; 85025; 85610; 85730; 86677; 93005; 94760; 96365; 96374; 99284; A4222; G0378; J1644

== ENCOUNTER 2017-03-31 23:05 | Observation (INO) | payer OTHER, BC ==
--- NOTE | 2017-03-31 23:21 | DR.CP ---
HPI - Time Seen Time seen: 23:10 - HPI Comment HPI Comment: PATIENT DISCHARGE FROM [facility] TODAY. TONIGHT AT HOME , PATIENT HAD SYNCOPAL EPISODE. HERE VIA EMS FULLY ALERT. HE HAD ECHO DONE THERE AND CARDIAC CATH. HE CURRENTLY HAVE LOWER SUBSTERNAL PAIN. NO FEVER. SLIGHT NAUSEA BUT NO VOMITING. - Complaint Chief Complaint Doctor Comments: AMS, CHEST PAIN AND SYNCOPAL EPIDOE TONIGHT. - Reviewed Nurses Notes Review: Yes - Source History Provided: Patient, Family Member - Mode of Arrival Mode of Arrival: Stretcher - Timing Came on: Gradually Pain: Present Now - Duration Duration: Constant Duration: Hours - Location Location of Chest Pain: Chest Chest Pain Radiation Location: None - Context Onset: With light exertion Cardiac Risk Factors: Family History, Hyperlipidemia, HTN, Diabetes PE Risk Factors: Recent Trauma/Surgery (CARDIAC CATH) History of: Similar pain in the past, [place], Angina Prehospital Care: Oxygen, IV, Monitor - Quality Quality: Sharp - Severity Severity: Moderate - Modifying Factors Worsens: Nothing Impoves: Nothing - Associated Signs and Symptoms Associated Signs and Symptoms: Shortness of Breath, Nausea/Vomiting PMH - PMH Past Medical History: Anemia, Angina, CHF, Coronary Artery Disease, Diabetes, Dyslipidemia, Hypertension Past Surgical History: Yes Surgical History: Angioplasty/Stents, Cholecystectomy - Family History Family Medical History: Diabetes Mellitus, [place] - Social History Do you use any recreational Drugs:: No ROS - Review of Systems Constitutional: No Symptoms Reported Eyes: Blurred Vision, Photophobia. negative: Eye Pain, Discharge ENTM: negative: Ear Pain, Nose Discharge, Mouth Pain, Throat Pain Respiratoy: Non-Productive Cough, Short of Breath, Wheezing. negative: Hemoptysis Cardiovascular: Chest Pain Gastrointestinal/Abdominal: Nausea. negative: Abdominal Pain, Diarrhea, Vomiting Genitourinary: negative: Dysuria, Hematuria Neurological: Headache, Weakness, Dizziness, Problems Walking Musculoskeletal: Joint Pain, Joint Swelling, Muscle Pain Integumentary: Change in Color, Dryness Hematologic/Lymphatic: No Symptoms Reported, Easy Bleeding, Easy Bruising Endocrine: Flushing, Decreased Appetite All Other Systems: Reviewed and Negative PE - Vitals Vitals: Temperature 97.7 F Pulse Rate [Apical] 73 Pulse Rate 73 Respiratory Rate 15 Blood Pressure [Right Arm] 151/65 Blood Pressure [Left Arm] 137/67 Blood Pressure 114/61 O2 Sat by Pulse Oximetry 100 - General Limitations: Altered Mental Status General Appearance: Alert - Head Head Exam: Normal Inspection - Eyes Eye exam: PERRL, EOMI. negative: Scleral Icterus, Conjunctival Injection, Periorbital Swelling, Periorbital Tenderness - ENT ENT Exam: Normal Oropharynx, Normal External Ear Exam, Mucous Membranes Moist, TM's Normal Bilaterally - Chest Chest Inspection: Symmetric Chest Wall Rise - Respiratory Respiratory Exam: Chest Wall Tenderness MDM - Additional Information Additional Information Obtained From: Family - Differential Diagnosis Differential Diagnosis: Angina, Chest Wall Pain, CHF, Esophageal Reflux/Spasm, Gastritis, Myocardial Infarction, Pneumonia, Pneumothorax Course - Treatment Treatment: SEE ORDERS. - Consultation Consultation Comments: DISCUSS PATIENT WITH DR. HERNANDEZ. HE WILL ADMIT PATIENT. - Education/Counseling Education/Counseling: Patient, Family, Education Educated On: Diagnosis ROR - Labs Reviewed Laboratory Results Reviewed?: Yes Result Diagrams: 03/31/17 23:10 03/31/17 23:10 Laboratory: WBC 5.8 X10^3/uL (3.6-10.0) 03/31/17 23:10 RBC 4.16 X10^6/uL (4.7-6.0) L 03/31/17 23:10 Hgb 12.6 g/dL (13.5-18.0) L 03/31/17 23:10 Hct 37.5 % (42.0-54.0) L 03/31/17 23:10 MCV 90.0 fL (80.0-100.0) 03/31/17 23:10 MCH 30.3 pg (27.0-34.0) 03/31/17 23:10 MCHC 33.6 g/dL (33.0-35.0) 03/31/17 23:10 RDW 14.6 % (11.6-16.5) 03/31/17 23:10 Plt Count 155 X10^3/uL (150.0-450.0) 03/31/17 23:10 MPV 9.3 fL (7.4-11.0) 03/31/17 23:10 Neut % 69.2 % (42.0-75.0) 03/31/17 23:10 Lymph % 18.9 % (21.0-51.0) L 03/31/17 23:10 [place] % 8.3 % (0.0-13.0) 03/31/17 23:10 Eos % 3.0 % (0.9-2.9) H 03/31/17 23:10 Baso % 0.6 % (0.2-1.0) 03/31/17 23:10 Neut # 4.0 x10^3/uL (2.2-4.8) 03/31/17 23:10 Lymph # 1.1 X10^3/uL (1.3-2.9) L 03/31/17 23:10 [place] # 0.5 x10^3/uL (0.3-0.8) 03/31/17 23:10 Eos # 0.2 x10^3/uL (0.0-0.2) 03/31/17 23:10 Baso # 0.0 X10^3/uL (0.0-0.1) 03/31/17 23:10 Absolute Nucleated RBC 0.3 /100WBC 03/31/17 23:10 INR Target Range - 03/31/17 23:10 INR 1.27 (0.8-1.3) 03/31/17 23:10 PTT 29.2 SECONDS (22.9-36.5) 03/31/17 23:10 PTT Comment - 03/31/17 23:10 Sodium 139 mmol/L (136-145) 03/31/17 23:10 Corrected Sodium 142 mmol/L (136-145) 03/31/17 23:10 Potassium 3.1 mmol/L (3.5-5.1) L 03/31/17 23:10 Chloride 103 mmol/L (98-107) 03/31/17 23:10 Carbon Dioxide 21.7 mmol/L (21-32) 03/31/17 23:10 BUN 18 mg/dL (7-18) 03/31/17 23:10 Creatinine 1.72 mg/dL (0.70-1.30) H 03/31/17 23:10 Est GFR (MDRD) Af Amer 49 (>60) L 03/31/17 23:10 Est GFR (MDRD) Non-Af 40 (>60) L 03/31/17 23:10 Glucose 210 mg/dL (65-99) H 03/31/17 23:10 Calcium 8.9 mg/dL (8.5-10.1) 03/31/17 23:10 Corrected Calcium 9.9 mg/dL (8.5-10.1) 03/31/17 23:10 Total Bilirubin 0.60 mg/dL (0.2-1.0) 03/31/17 23:10 AST 33 Units/L (15-37) 03/31/17 23:10 ALT 37 Units/L (12-78) 03/31/17 23:10 Alkaline Phosphatase 30 Units/L (46-116) L 03/31/17 23:10 Creatine Kinase 61 Units/L (39-308) 03/31/17 23:10 CK-MB (CK-2) < 1.0 ng/mL (0-4.0) 03/31/17 23:10 CK/CKMB % Calc 1.6 % (<4) 03/31/17 23:10 Troponin I 0.08 ng/mL (0-1.5) 03/31/17 23:10 B-Natriuretic Peptide 131 pg/mL (0-79) H 03/31/17 23:10 Total Protein 5.8 g/dL (6.4-8.2) L 03/31/17 23:10 Albumin 2.8 g/dL (3.4-5.0) L 03/31/17 23:10 Globulin 3.0 g/dL (2.5-4.5) 03/31/17 23:10 Albumin/Globulin Ratio 0.9 Ratio (1.1-2.1) L 03/31/17 23:10 - XRAY XRAY Interpreted by: Radiologist XRAY Findings: REPORT DISCUSS WITH PATIENT AND FAMILY. - EKG Rhythm: NSR, Afib (EKG NOTED) Block: RBBB - Diagnosis Discharge Problem: Syncope, Hypokalemia Altered mental state Qualifiers: Altered mental status type: transient alteration of awareness Qualified Code(s) : R40.4 - Transient alteration of awareness Chest pain Qualifiers: Chest pain type: precordial pain Qualified Code(s): R07.2 - Precordial pain - Discharge Plan Disposition: ADMITTED INPATIENT Condition: Stable - Follow ups/Referrals - Instructions
[2017-03-31 23:30] LABS: BASOPHILS % (AUTO) 0.6 % (0.2-1.0); EOSINOPHILS # (AUTO) 0.2 x10^3/uL (0.0-0.2); HEMATOCRIT 37.5 % (42.0-54.0); HEMOGLOBIN 12.6 g/dL (13.5-18.0); LYMPHOCYTES # (AUTO) 1.1 X10^3/uL (1.3-2.9); LYMPHOCYTES % (AUTO) 18.9 % (21.0-51.0); MEAN CORPUSCULAR HEMOGLOBIN 30.3 pg (27.0-34.0); MEAN CORPUSCULAR HGB CONC 33.6 g/dL (33.0-35.0); MEAN PLATELET VOLUME 9.3 fL (7.4-11.0); MONOCYTES # (AUTO) 0.5 x10^3/uL (0.3-0.8); MONOCYTES % (AUTO) 8.3 % (0.0-13.0); NEUTROPHILS % (AUTO) 69.2 % (42.0-75.0); PLATELET COUNT 155 X10^3/uL (150.0-450.0); RED BLOOD COUNT 4.16 X10^6/uL (4.7-6.0); RED CELL DISTRIBUTION WIDTH 14.6 % (11.6-16.5); WHITE BLOOD COUNT 5.8 X10^3/uL (3.6-10.0)
--- NOTE | 2017-03-31 23:41 | RAD ---
EXAM: Chest X-ray INDICATION: Syncope COMPARISION: Prior exam from March 26, 2017 TECHNIQUE: Single view FINDINGS: The lungs are clear and the lung volumes are within normal limits. No pleural effusion or pneumothora x. The cardiac silhouette and mediastinum are normal. The regional skeleton is intact. IMPRESSION: No acute abnormality identified Reported By:
[2017-03-31 23:42] LABS: BLOOD UREA NITROGEN 18 mg/dL (7-18); CALCIUM 8.9 mg/dL (8.5-10.1); CARBON DIOXIDE 21.7 mmol/L (21-32); CHLORIDE 103 mmol/L (98-107); COR NA(FOR HYPERGLY) 142 mmol/L (136-145); CREATININE 1.72 mg/dL (0.70-1.30); SODIUM 139 mmol/L (136-145); TROPONIN I 0.08 ng/mL (0-1.5); eGFR BLACK RACES 49 (>60); eGFR NON BLACK RACES 40 (>60)
[2017-03-31 23:47] LABS: ALANINE AMINOTRANSFERASE 37 Units/L (12-78); ALBUMIN 2.8 g/dL (3.4-5.0); ALKALINE PHOSPHATASE 30 Units/L (46-116); ASPARTATE AMINO TRANSFERASE 33 Units/L (15-37); CKMB % 1.6 % (<4); COR CA(FOR HYPOALB) 9.9 mg/dL (8.5-10.1); CREATINE KINASE 61 Units/L (39-308); CREATINE KINASE MB < 1.0 ng/mL (0-4.0); TOTAL PROTEIN 5.8 g/dL (6.4-8.2)
[2017-03-31 23:49] LABS: B-TYPE NATRIURETIC PEPTIDE 131 pg/mL (0-79)
[2017-04-01] MEDS: NS + KCL 40 MEQ/L 1,000 ML IV SCH ×2 (01:30→21:19)
[2017-04-01 01:54] VITALS: BMI 28.4
[2017-04-01 05:30] LABS: BILIRUBIN,URINE NEGATIVE (NEGATIVE); BLOOD/HEMOGLOBIN,URINE 1+ (NEGATIVE); GLUCOSE, URINE 2+ (NEGATIVE); KETONES,URINE NEGATIVE (NEGATIVE); LEUKOCYTE ESTERASE ,URINE 3+ (NEGATIVE); NITRITES,URINE NEGATIVE (NEGATIVE); PROTEIN,URINE 2+ (NEGATIVE); UROBILINOGEN,URINE 1+ (NORMAL)
[2017-04-01 05:43] LABS: APPEARANCE,URINE SLIGHTLY HAZY (CLEAR); COLOR,URINE DARK YELLOW (YELLOW)
[2017-04-01 05:44] LABS: BACTERIA,URINE 1+ /HPF (NEGATIVE); HYALINE CASTS, URINE MODERATE /LPF (NEGATIVE); MUCUS,URINE FEW /HPF (NEGATIVE); RBC,URINE 0-3 /HPF (NEGATIVE); SQUAMOUS EPITHELIAL CELL,UR RARE /HPF (NEGATIVE)
[2017-04-01 05:59] LABS: BASOPHILS % (AUTO) 0.7 % (0.2-1.0); EOSINOPHILS # (AUTO) 0.1 x10^3/uL (0.0-0.2); EOSINOPHILS % (AUTO) 1.7 % (0.9-2.9); HEMATOCRIT 33.9 % (42.0-54.0); HEMOGLOBIN 11.7 g/dL (13.5-18.0); LYMPHOCYTES # (AUTO) 0.6 X10^3/uL (1.3-2.9); LYMPHOCYTES % (AUTO) 12.8 % (21.0-51.0); MEAN CORPUSCULAR HEMOGLOBIN 30.3 pg (27.0-34.0); MEAN CORPUSCULAR HGB CONC 34.4 g/dL (33.0-35.0); MEAN CORPUSCULAR VOLUME 88.1 fL (80.0-100.0); MEAN PLATELET VOLUME 8.8 fL (7.4-11.0); MONOCYTES # (AUTO) 0.5 x10^3/uL (0.3-0.8); NEUTROPHILS # (AUTO) 3.7 x10^3/uL (2.2-4.8); NEUTROPHILS % (AUTO) 74.8 % (42.0-75.0); PLATELET COUNT 128 X10^3/uL (150.0-450.0); RED BLOOD COUNT 3.85 X10^6/uL (4.7-6.0); RED CELL DISTRIBUTION WIDTH 14.9 % (11.6-16.5); WHITE BLOOD COUNT 4.9 X10^3/uL (3.6-10.0)
[2017-04-01 06:13] LABS: ALANINE AMINOTRANSFERASE 37 Units/L (12-78); ALBUMIN 2.6 g/dL (3.4-5.0); ALKALINE PHOSPHATASE 29 Units/L (46-116); ASPARTATE AMINO TRANSFERASE 32 Units/L (15-37); BLOOD UREA NITROGEN 20 mg/dL (7-18); CALCIUM 8.5 mg/dL (8.5-10.1); CARBON DIOXIDE 27.2 mmol/L (21-32); CHLORIDE 107 mmol/L (98-107); COR CA(FOR HYPOALB) 9.6 mg/dL (8.5-10.1); COR NA(FOR HYPERGLY) 143 mmol/L (136-145); CREATININE 1.42 mg/dL (0.70-1.30); SODIUM 141 mmol/L (136-145); TOTAL PROTEIN 5.3 g/dL (6.4-8.2); eGFR BLACK RACES > 60 (>60); eGFR NON BLACK RACES 50 (>60)
[2017-04-01 06:37] LABS: CKMB % 1.8 % (<4); CREATINE KINASE 55 Units/L (39-308); CREATINE KINASE MB < 1.0 ng/mL (0-4.0); TROPONIN I 0.07 ng/mL (0-1.5)
[2017-04-01] MEDS ORDERED: TAMOXIFEN CITRATE 10 MG PO SCH (09:00)
[2017-04-01] MEDS ORDERED: PATIENT'S HOME MEDICATION (Losartan Potassium [Losartan Potassium] 100 MG) PO SCH (09:00)
[2017-04-01] MEDS ORDERED: PATIENT'S HOME MEDICATION PO SCH (09:00)
[2017-04-01] MEDS ORDERED: CHOLECALCIFEROL 5000 UNIT PO SCH (09:00)
[2017-04-01] MEDS: JANUVIA PO SCH (09:21)
[2017-04-01] MEDS: COZAAR PO SCH (09:21)
[2017-04-01] MEDS: PROTONIX TAB 40 MG PO SCH (09:21)
[2017-04-01] MEDS: NOLVADEX PO SCH (09:21)
[2017-04-01] MEDS: BENTYL CAP 10 MG PO SCH ×2 (09:21→21:17)
[2017-04-01] MEDS: PLAVIX PO SCH (09:22)
[2017-04-01] MEDS: VITAMIN D3 PO SCH ×2 (09:22→21:17)
[2017-04-01 12:04] LABS: CKMB % 1.6 % (<4); CREATINE KINASE MB 1.2 ng/mL (0-4.0); TROPONIN I 0.05 ng/mL (0-1.5)
--- NOTE | 2017-04-01 14:59 | CT ---
HISTORY: Syncope Study: CT brain without contrast Comparison: Head CT dated 03/17/2015 Technique: Multiple axial images of the brain were obtained from the skull base to the vertex without administra tion of IV contrast. Automated exposure control (AEC) was utilized to adjust the MA and/or kV accordi ng to patient size. Findings: There is no acute intracranial hemorrhage. There is a chronic lacunar infarct within the left cerebe llar hemisphere unchanged previous CT. 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 There is a chronic infarct in the right parietal lobe. N o mass or mass effect. No abnormal extra-axial fluid collection. There is a generalized prominence of the ventricles, sulci, and cisterns compatible with advanced gen eralized volume loss. Dawkins matter -white matter interface is distinct. The bilateral mastoid air cells and included paranasal sinuses are predominantly clear. There is no acute osseous abnormality. IMPRESSION: 1. No acute intracranial process can be identified. Chronic ischemic changes are noted as discussed above including a remote right parietal lobe infarct and remote left cerebellar lacunar infarct. If there is clinical concern for acute ischemia, further evaluation with MRI of the brain would be recom mended, if not contraindicated. 2. Generalized volume loss. Reported By:
[2017-04-01] MEDS ORDERED: COUMADIN TAB 3 MG PO SCH (18:00)
[2017-04-01] MEDS: OXYBUTYNIN CHLORIDE ER PO SCH ×2 (18:32→21:19)
[2017-04-01] MEDS ORDERED: PATIENT'S HOME MEDICATION (Atorvastatin Calcium [Lipitor] 1 TAB) PO SCH (21:00)
[2017-04-01] MEDS ORDERED: LIPITOR TAB 40 MG PO SCH (21:00)
[2017-04-01] MEDS ORDERED: ROCEPHIN VIAL 1 GM ONE (21:30)
[2017-04-01] MEDS ORDERED: NS 50 ML IV 50 ML IV ONE (21:30)
--- NOTE | 2017-04-01 21:59 | DR.UPDATE ---
H&P Update History and Physical Update: H&P WAS COMPLETED WITH HIS LAST ADMISSION ON 03/26/17. TODAY, HE PRESENTED TO THE EMERGENCY ROOM WITH COMPLAINTS OF CHEST PAIN AND A SYNCOPAL EPISODE. PATIENT WAS DISCHARGED HOME FROM [facility] WHERE HE HAD A HEART CATH AND AN ECHO. AFTER RETURNING HOME, FAMILY REPORTED THAT PATIENT PASSED OUT AND IS CONFUSED. ON ARRIVAL TO ER, VITALS WER [id number]%-114/61. LABS, EKG, AND CHEST XRAY WERE OBTAINED. ABNORMAL LAB VALUES INCLUED THE FOLLOWING: RBC 4.16, HGB 12.6, HCT 37.5, BUN 20, CREATININE 1.42, ALK PHOS 29, TOTAL PROTEIN 5.3, ALBUMIN 2.6. URINALYSIS REPORTED URINE WBC 10-15, BACTERIA 1+, LEUKOCYTES 1+, OCCULT BLOOD 1+, PROTEIN 2+. CHEST XRAY NEGATIVE FOR ACUTE ABNORMALITY. EKG REPORTED SINUS RHYTHM WITH MULTIPLE PVCs, RBBB, OLD INFERIOR INFARCT. HEARTRATE 73 ON EKG. WE ADMITTED PATIENT FOR FURTHER TREATMENT AND EVALUATION. WE STARTED PATIENT ON NS WITH 40MEQ KCL AT 100ML/HR AND RESTARTED HOME MEDICATIONS. WE PLANNED TO RECHECK AM LABS AND CONTINUE TO MONITOR PATIENT. Changes noted: NO Yes with the following:
[2017-04-01] MEDS: ROCEPHIN VIAL 1 GM 1 GM in NS 50 ML IV + SPIKE MINIBAG* 50 ML IV SCH (22:16)
[2017-04-02 06:16] LABS: ALANINE AMINOTRANSFERASE 49 Units/L (12-78); ALBUMIN 2.6 g/dL (3.4-5.0); ALKALINE PHOSPHATASE 23 Units/L (46-116); ASPARTATE AMINO TRANSFERASE 42 Units/L (15-37); BLOOD UREA NITROGEN 16 mg/dL (7-18); CALCIUM 8.4 mg/dL (8.5-10.1); CARBON DIOXIDE 24.4 mmol/L (21-32); CHLORIDE 109 mmol/L (98-107); COR CA(FOR HYPOALB) 9.5 mg/dL (8.5-10.1); COR NA(FOR HYPERGLY) 141 mmol/L (136-145); CREATININE 1.09 mg/dL (0.70-1.30); SODIUM 140 mmol/L (136-145); TOTAL PROTEIN 5.3 g/dL (6.4-8.2); eGFR BLACK RACES > 60 (>60); eGFR NON BLACK RACES > 60 (>60)
[2017-04-02 06:36] LABS: BASOPHILS % (AUTO) 0.5 % (0.2-1.0); EOSINOPHILS # (AUTO) 0.2 x10^3/uL (0.0-0.2); EOSINOPHILS % (AUTO) 3.5 % (0.9-2.9); HEMATOCRIT 33.5 % (42.0-54.0); HEMOGLOBIN 11.3 g/dL (13.5-18.0); LYMPHOCYTES # (AUTO) 0.7 X10^3/uL (1.3-2.9); LYMPHOCYTES % (AUTO) 14.7 % (21.0-51.0); MEAN CORPUSCULAR HEMOGLOBIN 29.9 pg (27.0-34.0); MEAN CORPUSCULAR HGB CONC 33.7 g/dL (33.0-35.0); MEAN CORPUSCULAR VOLUME 88.7 fL (80.0-100.0); MEAN PLATELET VOLUME 9.3 fL (7.4-11.0); MONOCYTES # (AUTO) 0.5 x10^3/uL (0.3-0.8); MONOCYTES % (AUTO) 10.4 % (0.0-13.0); NEUTROPHILS # (AUTO) 3.3 x10^3/uL (2.2-4.8); NEUTROPHILS % (AUTO) 70.9 % (42.0-75.0); PLATELET COUNT 114 X10^3/uL (150.0-450.0); RED BLOOD COUNT 3.78 X10^6/uL (4.7-6.0); RED CELL DISTRIBUTION WIDTH 14.9 % (11.6-16.5); WHITE BLOOD COUNT 4.6 X10^3/uL (3.6-10.0)
[2017-04-02] MEDS: NS + KCL 40 MEQ/L 1,000 ML IV SCH (08:35)
[2017-04-02] MEDS ORDERED: NS 50 ML IV 50 ML IV ONE (08:58)
[2017-04-02] MEDS ORDERED: APLISOL ID ONE ×2 (09:25→11:35)
[2017-04-02] MEDS: BENTYL CAP 10 MG PO SCH (09:42)
[2017-04-02] MEDS: COZAAR PO SCH (09:42)
[2017-04-02] MEDS: PLAVIX PO SCH (09:42)
[2017-04-02] MEDS: JANUVIA PO SCH (09:42)
[2017-04-02] MEDS: NOLVADEX PO SCH (09:42)
[2017-04-02] MEDS: ROCEPHIN VIAL 1 GM 1 GM in NS 50 ML IV + SPIKE MINIBAG* 50 ML IV SCH (09:43)
[2017-04-02] MEDS: VITAMIN D3 PO SCH (09:43)
[2017-04-02] MEDS: PROTONIX TAB 40 MG PO SCH (09:43)
[2017-04-02 12:31] VITALS: BP 196/87
[2017-04-03] MEDS ORDERED: ROCEPHIN VIAL 1 GM 1 GM in NS 50 ML IV 50 ML IV SCH (09:00)
== END 2017-04-02 12:20 | disposition home or self-care (01) ==
LOC: ER 23:05 → ICU 04-01 00:30
PROVIDERS: ADMIT Internal Medicine; ATTEND Internal Medicine
DX: R07.2 Precordial pain (principal); R40.4 Transient alteration of awareness; R55 Syncope and collapse; R51 Headache; R26.89 Other abnormalities of gait and mobility; R82.99 Other abnormal findings in urine
CPT/HCPCS: 36415; 70450; 71010; 80053; 81001; 82550; 82553; 83880; 84484; 85025; 85610; 85730; 93005; 96365; 99284; A4216; A4222; G0378; J0696

== ENCOUNTER 2017-06-06 19:03 | Inpatient (IN) | payer OTHER, BC ==
--- NOTE | 2017-06-06 23:14 | DR.GENAD ---
HPI - PCP Primary Care Physician: MARY - HPI Comment HPI Comment: PATIENT IS HAVING CHEST PAIN. HE IS SOB AND HAVE UPPER ABDOMINAL PAIN. HE IS WEAK AND DAUGHTER IS CONCERN FOR PNEUMONIA. COUGH PRODUCTIVE WITH THICK MUCOUS. PATIENT WORSE TODAY. NOTED TO HAVE CHILLS TODAY. - Complaint/Symptoms Chief Complaint Doctors Comments: PERSISTENT COUGH AND FEVER FOR SEVERAL DAYS. Chief Complaint:: HTN AND ELEVATED OTBS PER EMS. COUGH AND FEVER FOR SEVERAL DAYS PER PT'S DAUGHTER - Nurses notes reviewed Nurses Notes Review: Yes - Source History Provided: Patient, EMS - Mode of Arrival Mode of Arrival: Stretcher - Timing Onset of Chief Complaint: 06/06/17 Came on: Gradually - Duration Duration: Constant Duration: Days - Severity Severity: Moderate PMH - PMH Past Medical History: Yes Past Medical History: Anemia, Angina, CHF, Coronary Artery Disease, Diabetes, Dyslipidemia, Hypertension Past Surgical History: Yes Surgical History: Angioplasty/Stents, Cholecystectomy - Family History History of Family Medical Conditions: Yes Family Medical History: Diabetes Mellitus, [place] - Social History Alcohol Use: None Do you use any recreational Drugs:: No Lives With: Family Lives Where: Home - infectious screening In the last 2 months have you had wt loss of >10#?: NO Have you had fever, night sweats or hemotysis?: No Have you traveled outside the country in the last 6 months?: No Isolation: Standard ROS - Review of Systems Constitutional: Chills, Fever, Weakness, Fatigue Eyes: negative: Eye Pain, Discharge ENTM: Nose Congestion. negative: Ear Pain, Nose Discharge, Throat Pain Respiratoy: Productive Cough, Short of Breath, Wheezing Cardiovascular: Chest Pain Gastrointestinal/Abdominal: Abdominal Pain Genitourinary: negative: Dysuria, Hematuria Neurological: Weakness. negative: Headache, Dizziness Musculoskeletal: Muscle Pain Integumentary: No Symptoms Reported, Dryness Hematologic/Lymphatic: No Symptoms Reported Endocrine: negative: Flushing, Increased Thirst, Increased Urine All Other Systems: Reviewed and Negative PE - Vital Signs Vitals: Temperature 100.6 F Pulse Rate 120 Respiratory Rate 20 Blood Pressure [Right Arm] 167/84 Blood Pressure [Left Arm] 196/87 Blood Pressure 158/84 O2 Sat by Pulse Oximetry 95 - General Limitations: No Limitations General Appearance: In No Apparent Distress - Head Head Exam: Normal Inspection - Eyes Eye exam: PERRL, EOMI. negative: Scleral Icterus, Conjunctival Injection - ENT ENT Exam: Normal External Ear Exam, Mucous Membranes Dry External Ear Exam: Normal External Inspection TM/Canal Exam: Bilateral Normal Nose Exam: Normal Nose Exam Mouth Exam: Normal Inspection Throat Exam: Normal Inspection - Neck Neck Exam: Trachea Midline - Chest Chest Inspection: Symmetric Chest Wall Rise - Respiratory Respiratory Exam: Prolonged Expiratory Phase Respiratory Exam: Bilateral Wheezing, Bilateral Rhonchi, Upper Rhonchi, Lower Wheezing, Lower Rhonchi - Cardiovascular Cardiovascular Exam: Regular Rate, Normal Rhythm, Normal Heart Sounds - Abdominal Exam Abdominal Exam: Normal Bowel Sounds, Soft, Tenderness Abdominal Tenderness: RUQ, RLQ, Epigastrium, Moderate ROR - Labs Reviewed Result Diagrams: 06/07/17 00:05 06/07/17 00:05 Laboratory: WBC 13.4 X10^3/uL (3.6-10.0) H 06/07/17 00:05 RBC 4.18 X10^6/uL (4.7-6.0) L 06/07/17 00:05 Hgb 12.6 g/dL (13.5-18.0) L 06/07/17 00:05 Hct 37.4 % (42.0-54.0) L 06/07/17 00:05 MCV 89.7 fL (80.0-100.0) 06/07/17 00:05 MCH 30.2 pg (27.0-34.0) 06/07/17 00:05 MCHC 33.7 g/dL (33.0-35.0) 06/07/17 00:05 RDW 15.2 % (11.6-16.5) 06/07/17 00:05 Plt Count 155 X10^3/uL (150.0-450.0) 06/07/17 00:05 MPV 10.1 fL (7.4-11.0) 06/07/17 00:05 Neut % 90.1 % (42.0-75.0) H 06/07/17 00:05 Lymph % 2.9 % (21.0-51.0) L 06/07/17 00:05 [place] % 6.7 % (0.0-13.0) 06/07/17 00:05 Eos % 0.0 % (0.9-2.9) L 06/07/17 00:05 Baso % 0.3 % (0.2-1.0) 06/07/17 00:05 Neut # 12.0 x10^3/uL (2.2-4.8) H 06/07/17 00:05 Lymph # 0.4 X10^3/uL (1.3-2.9) L 06/07/17 00:05 [place] # 0.9 x10^3/uL (0.3-0.8) H 06/07/17 00:05 Eos # 0.0 x10^3/uL (0.0-0.2) 06/07/17 00:05 Baso # 0.0 X10^3/uL (0.0-0.1) 06/07/17 00:05 Absolute Nucleated RBC 0.0 /100WBC 06/07/17 00:05 - Discharge Plan Condition: Stable - Follow ups/Referrals - Instructions
[2017-06-06] MEDS ORDERED: ROCEPHIN VIAL 1 GM 1 GM in NS 50 ML IV + SPIKE MINIBAG* 50 ML IV ONE (23:17)
[2017-06-06] MEDS ORDERED: NS 50 ML IV 50 ML IV ONE (23:32)
[2017-06-07] MEDS: NS 1000 ML 1,000 ML IV SCH ×3 (00:30→23:15)
[2017-06-07 00:36] LABS: BASOPHILS % (AUTO) 0.3 % (0.2-1.0); HEMATOCRIT 37.4 % (42.0-54.0); HEMOGLOBIN 12.6 g/dL (13.5-18.0); LYMPHOCYTES # (AUTO) 0.4 X10^3/uL (1.3-2.9); LYMPHOCYTES % (AUTO) 2.9 % (21.0-51.0); MEAN CORPUSCULAR HEMOGLOBIN 30.2 pg (27.0-34.0); MEAN CORPUSCULAR HGB CONC 33.7 g/dL (33.0-35.0); MEAN CORPUSCULAR VOLUME 89.7 fL (80.0-100.0); MEAN PLATELET VOLUME 10.1 fL (7.4-11.0); MONOCYTES # (AUTO) 0.9 x10^3/uL (0.3-0.8); MONOCYTES % (AUTO) 6.7 % (0.0-13.0); NEUTROPHILS % (AUTO) 90.1 % (42.0-75.0); PLATELET COUNT 155 X10^3/uL (150.0-450.0); RED BLOOD COUNT 4.18 X10^6/uL (4.7-6.0); RED CELL DISTRIBUTION WIDTH 15.2 % (11.6-16.5); WHITE BLOOD COUNT 13.4 X10^3/uL (3.6-10.0)
[2017-06-07 00:48] LABS: BLOOD UREA NITROGEN 19 mg/dL (7-18); CALCIUM 7.8 mg/dL (8.5-10.1); CARBON DIOXIDE 23.3 mmol/L (21-32); CHLORIDE 103 mmol/L (98-107); COR NA(FOR HYPERGLY) 140 mmol/L (136-145); CREATININE 1.24 mg/dL (0.70-1.30); SODIUM 137 mmol/L (136-145); TROPONIN I 0.18 ng/mL (0-1.5); eGFR BLACK RACES > 60 (>60); eGFR NON BLACK RACES 59 (>60)
[2017-06-07 00:52] LABS: ALANINE AMINOTRANSFERASE 13 Units/L (12-78); ALKALINE PHOSPHATASE 40 Units/L (46-116); CKMB % 0.7 % (<4); COR CA(FOR HYPOALB) 8.6 mg/dL (8.5-10.1); CREATINE KINASE 143 Units/L (39-308); CREATINE KINASE MB < 1.0 ng/mL (0-4.0); TOTAL PROTEIN 6.2 g/dL (6.4-8.2)
[2017-06-07 01:36] LABS: BAND NEUTROPHILS % 10 % (0-10); PLATELET MORPHOLOGY COMMENT NORMAL (NORMAL)
[2017-06-07 01:39] LABS: ASPARTATE AMINO TRANSFERASE 48 Units/L (15-37)
--- NOTE | 2017-06-07 01:55 | RAD ---
Acute abdominal series Indication: Abdominal pain Comparison: 10/06/2016 Findings: The trachea is midline. The cardiac silhouette is enlarged. Moderate calcified atherosclerotic dise ase of the aortic arch is unchanged as well. The lungs are clear without focal infiltrate or effusion . The bony thorax is unremarkable. Flat and upright evaluation of the abdomen demonstrates a normal bowel gas pattern. No pathological soft tissue mass or calcification can be observed. The bony structures are grossly intact. IMPRESSION: 1. Stable cardiomegaly without acute airspace disease or CHF. 2. No evidence for acute abdominal pathology identified. Reported By:
[2017-06-07 03:49] LABS: CKMB % 1.2 % (<4); CREATINE KINASE 83 Units/L (39-308); CREATINE KINASE MB < 1.0 ng/mL (0-4.0); TROPONIN I 0.17 ng/mL (0-1.5)
[2017-06-07] MEDS ORDERED: ROCEPHIN VIAL 1 GM 1 GM in NS 50 ML IV + SPIKE MINIBAG* 50 ML IV SCH (04:30)
[2017-06-07 06:59] VITALS: BMI 30.3
[2017-06-07 07:33] LABS: BLOOD UREA NITROGEN 20 mg/dL (7-18); CALCIUM 8.1 mg/dL (8.5-10.1); CARBON DIOXIDE 26.3 mmol/L (21-32); CHLORIDE 107 mmol/L (98-107); COR NA(FOR HYPERGLY) 144 mmol/L (136-145); CREATININE 1.19 mg/dL (0.70-1.30); SODIUM 142 mmol/L (136-145); eGFR BLACK RACES > 60 (>60); eGFR NON BLACK RACES > 60 (>60)
[2017-06-07 08:00] LABS: ALANINE AMINOTRANSFERASE 10 Units/L (12-78); ALKALINE PHOSPHATASE 36 Units/L (46-116); ASPARTATE AMINO TRANSFERASE 15 Units/L (15-37); MAGNESIUM 1.6 mg/dL (1.7-2.9); TOTAL PROTEIN 5.7 g/dL (6.4-8.2)
[2017-06-07 08:19] LABS: ALBUMIN 2.8 g/dL (3.4-5.0); COR CA(FOR HYPOALB) 9.1 mg/dL (8.5-10.1)
[2017-06-07 08:31] LABS: BASOPHILS % (AUTO) 0.3 % (0.2-1.0); EOSINOPHILS % (AUTO) 0.1 % (0.9-2.9); HEMATOCRIT 33.8 % (42.0-54.0); HEMOGLOBIN 11.5 g/dL (13.5-18.0); LYMPHOCYTES # (AUTO) 0.6 X10^3/uL (1.3-2.9); LYMPHOCYTES % (AUTO) 5.3 % (21.0-51.0); MEAN CORPUSCULAR HEMOGLOBIN 29.9 pg (27.0-34.0); MEAN CORPUSCULAR HGB CONC 33.9 g/dL (33.0-35.0); MEAN CORPUSCULAR VOLUME 88.2 fL (80.0-100.0); MEAN PLATELET VOLUME 8.9 fL (7.4-11.0); MONOCYTES # (AUTO) 0.7 x10^3/uL (0.3-0.8); MONOCYTES % (AUTO) 6.4 % (0.0-13.0); NEUTROPHILS # (AUTO) 10.1 x10^3/uL (2.2-4.8); NEUTROPHILS % (AUTO) 87.9 % (42.0-75.0); PLATELET COUNT 116 X10^3/uL (150.0-450.0); RED BLOOD COUNT 3.84 X10^6/uL (4.7-6.0); RED CELL DISTRIBUTION WIDTH 14.9 % (11.6-16.5); WHITE BLOOD COUNT 11.5 X10^3/uL (3.6-10.0)
[2017-06-07 09:08] LABS: CKMB % 1.1 % (<4); TROPONIN I 0.14 ng/mL (0-1.5)
[2017-06-07 15:08] LABS: CKMB % 1.2 % (<4); CREATINE KINASE 84 Units/L (39-308); CREATINE KINASE MB < 1.0 ng/mL (0-4.0); TROPONIN I 0.09 ng/mL (0-1.5)
[2017-06-07] MEDS: PROTONIX TAB 40 MG PO SCH (17:39)
[2017-06-07] MEDS: PLAVIX PO SCH (17:39)
[2017-06-07] MEDS: JANUVIA PO SCH (17:39)
[2017-06-07] MEDS: VITAMIN D3 PO SCH (20:57)
[2017-06-07] MEDS: COUMADIN TAB 3 MG PO SCH (20:58)
[2017-06-07] MEDS: LIPITOR TAB 40 MG PO SCH (20:58)
[2017-06-07] MEDS ORDERED: TAMOXIFEN CITRATE 10 MG PO SCH (21:00)
[2017-06-07] MEDS ORDERED: PATIENT'S HOME MEDICATION (Atorvastatin Calcium [Lipitor] 1 TAB) PO SCH (21:00)
[2017-06-07] MEDS ORDERED: CHOLECALCIFEROL 5000 UNIT PO SCH (21:00)
[2017-06-07] MEDS: BENTYL CAP 10 MG PO SCH (21:08)
[2017-06-07] MEDS: NOLVADEX PO SCH (23:14)
[2017-06-08] MEDS ORDERED: PATIENT'S HOME MEDICATION (Losartan Potassium [Losartan Potassium] 100 MG) PO SCH (09:00)
[2017-06-08] MEDS ORDERED: PATIENT'S HOME MEDICATION (Oxybutynin Chloride [Ditropan Xl] 10 MG) PO SCH (09:00)
[2017-06-08] MEDS ORDERED: ESCITALOPRAM OXALATE 5 MG PO SCH (09:00)
[2017-06-08] MEDS ORDERED: NOLVADEX PO ONE (09:19)
[2017-06-08] MEDS ORDERED: LEXAPRO ONE (09:37)
[2017-06-08] MEDS: VITAMIN D3 PO SCH ×2 (10:11→20:20)
[2017-06-08] MEDS: COZAAR PO SCH (10:11)
[2017-06-08] MEDS: OXYBUTYNIN CHLORIDE ER PO SCH (10:11)
[2017-06-08] MEDS: BENTYL CAP 10 MG PO SCH ×2 (10:12→20:20)
[2017-06-08] MEDS: PROTONIX TAB 40 MG PO SCH (10:12)
[2017-06-08] MEDS: PLAVIX PO SCH (10:12)
[2017-06-08] MEDS: JANUVIA PO SCH (10:12)
[2017-06-08] MEDS: MIRALAX POWDER (1 DOSE 17GM) PO SCH (10:12)
[2017-06-08] MEDS ORDERED: BUTT CREAM (COMPOUND) TOP PRN (10:13)
[2017-06-08] MEDS: LEXAPRO PO SCH (10:15)
[2017-06-08] MEDS: ROCEPHIN 1 GM IV PREMIX 1 GM/50 ML IV.SOLN. IV SCH (11:30)
[2017-06-08] MEDS: NS 1000 ML 1,000 ML IV SCH ×2 (17:50→17:51)
[2017-06-08] MEDS: COUMADIN TAB 3 MG PO SCH (20:19)
[2017-06-08] MEDS: LIPITOR TAB 40 MG PO SCH (20:20)
[2017-06-08] MEDS: NOLVADEX PO SCH (20:51)
[2017-06-09] MEDS: NS 1000 ML 1,000 ML IV SCH (00:46)
[2017-06-09 04:16] LABS: BILIRUBIN,URINE NEGATIVE (NEGATIVE); BLOOD/HEMOGLOBIN,URINE 2+ (NEGATIVE); GLUCOSE, URINE 2+ (NEGATIVE); KETONES,URINE NEGATIVE (NEGATIVE); LEUKOCYTE ESTERASE ,URINE NEGATIVE (NEGATIVE); NITRITES,URINE NEGATIVE (NEGATIVE); PROTEIN,URINE 1+ (NEGATIVE); UROBILINOGEN,URINE NORMAL (NORMAL)
[2017-06-09 04:27] LABS: APPEARANCE,URINE CLEAR (CLEAR); BACTERIA,URINE NEGATIVE /HPF (NEGATIVE); COLOR,URINE YELLOW (YELLOW); RBC,URINE RARE /HPF (NEGATIVE); SQUAMOUS EPITHELIAL CELL,UR RARE /HPF (NEGATIVE)
--- NOTE | 2017-06-09 06:11 | RAD ---
Examination: AP chest History: Bronchitis, prostate CA Comparison reference: 03/31/2017 Findings: Continued cardiac enlargement and aortic arteriosclerosis. The right lung is essentially cl ear. There is abnormal opacity behind the heart, obscuring the retrocardiac lower lobe and diaphragm. No pneumothorax is seen. Impression: Stable cardiac enlargement with interval development of airspace disease in the left lowe r lobe. Pleural component may be present. Follow-up suggested. Reported By:
[2017-06-09] MEDS ORDERED: LEXAPRO ONE (08:49)
[2017-06-09] MEDS: ROCEPHIN 1 GM IV PREMIX 1 GM/50 ML IV.SOLN. IV SCH (08:55)
[2017-06-09] MEDS: OXYBUTYNIN CHLORIDE ER PO SCH (08:56)
[2017-06-09] MEDS: BENTYL CAP 10 MG PO SCH ×2 (08:56→21:42)
[2017-06-09] MEDS: LEXAPRO PO SCH ×2 (08:57→08:58)
[2017-06-09] MEDS: PLAVIX PO SCH (08:57)
[2017-06-09] MEDS: VITAMIN D3 PO SCH ×2 (08:57→21:42)
[2017-06-09] MEDS: MIRALAX POWDER (1 DOSE 17GM) PO SCH (08:58)
[2017-06-09] MEDS: COZAAR PO SCH (08:58)
[2017-06-09] MEDS: JANUVIA PO SCH (08:59)
[2017-06-09] MEDS: PROTONIX TAB 40 MG PO SCH (08:59)
[2017-06-09 11:48] LABS: ALANINE AMINOTRANSFERASE 14 Units/L (12-78); ALBUMIN 3.2 g/dL (3.4-5.0); ALKALINE PHOSPHATASE 40 Units/L (46-116); ASPARTATE AMINO TRANSFERASE 20 Units/L (15-37); BLOOD UREA NITROGEN 12 mg/dL (7-18); CALCIUM 8.6 mg/dL (8.5-10.1); CARBON DIOXIDE 27.7 mmol/L (21-32); CHLORIDE 104 mmol/L (98-107); COR CA(FOR HYPOALB) 9.2 mg/dL (8.5-10.1); COR NA(FOR HYPERGLY) 142 mmol/L (136-145); CREATININE 1.14 mg/dL (0.70-1.30); SODIUM 140 mmol/L (136-145); TOTAL PROTEIN 6.7 g/dL (6.4-8.2); eGFR BLACK RACES > 60 (>60); eGFR NON BLACK RACES > 60 (>60)
[2017-06-09 12:23] LABS: CHOL/HDL RATIO 2.5 (0.0-5.0); CHOLESTEROL 101 mg/dL (0-200); HDL CHOLESTEROL 40 mg/dL (40-60); TRIGLYCERIDES 64 mg/dL (0-150)
[2017-06-09] MEDS: SOLU-Medrol 40 MG VIAL IVP SCH ×2 (17:33→21:41)
[2017-06-09] MEDS ORDERED: DUONEB 0.5 MG/3 MG NEB PRN (20:11)
[2017-06-09] MEDS: COUMADIN TAB 3 MG PO SCH (21:41)
[2017-06-09] MEDS: LIPITOR TAB 40 MG PO SCH (21:42)
[2017-06-09] MEDS: NOLVADEX PO SCH (21:43)
[2017-06-10 06:08] LABS: ALANINE AMINOTRANSFERASE 13 Units/L (12-78); ALBUMIN 2.8 g/dL (3.4-5.0); ALKALINE PHOSPHATASE 34 Units/L (46-116); ASPARTATE AMINO TRANSFERASE 22 Units/L (15-37); BLOOD UREA NITROGEN 12 mg/dL (7-18); CALCIUM 8.2 mg/dL (8.5-10.1); CARBON DIOXIDE 24.1 mmol/L (21-32); CHLORIDE 104 mmol/L (98-107); COR CA(FOR HYPOALB) 9.2 mg/dL (8.5-10.1); COR NA(FOR HYPERGLY) 141 mmol/L (136-145); CREATININE 0.96 mg/dL (0.70-1.30); SODIUM 138 mmol/L (136-145); TOTAL PROTEIN 6.1 g/dL (6.4-8.2); eGFR BLACK RACES > 60 (>60); eGFR NON BLACK RACES > 60 (>60)
[2017-06-10] MEDS: SOLU-Medrol 40 MG VIAL IVP SCH ×3 (06:12→21:33)
[2017-06-10 06:30] LABS: BASOPHILS % (AUTO) 0.2 % (0.2-1.0); HEMATOCRIT 34.2 % (42.0-54.0); HEMOGLOBIN 11.9 g/dL (13.5-18.0); LYMPHOCYTES # (AUTO) 0.3 X10^3/uL (1.3-2.9); LYMPHOCYTES % (AUTO) 7.6 % (21.0-51.0); MEAN CORPUSCULAR HEMOGLOBIN 30.6 pg (27.0-34.0); MEAN CORPUSCULAR HGB CONC 34.7 g/dL (33.0-35.0); MEAN CORPUSCULAR VOLUME 88.1 fL (80.0-100.0); MEAN PLATELET VOLUME 9.3 fL (7.4-11.0); MONOCYTES # (AUTO) 0.1 x10^3/uL (0.3-0.8); MONOCYTES % (AUTO) 2.1 % (0.0-13.0); NEUTROPHILS # (AUTO) 3.1 x10^3/uL (2.2-4.8); NEUTROPHILS % (AUTO) 90.1 % (42.0-75.0); PLATELET COUNT 139 X10^3/uL (150.0-450.0); RED BLOOD COUNT 3.88 X10^6/uL (4.7-6.0); RED CELL DISTRIBUTION WIDTH 14.4 % (11.6-16.5); WHITE BLOOD COUNT 3.4 X10^3/uL (3.6-10.0)
--- NOTE | 2017-06-10 06:43 | RAD ---
HISTORY: Bronchitis Study: Chest AP portable Comparison: 06/08/2017 Findings: The patient is rotated to the left. The heart is mildly enlarged. No congestive heart failure is note d. No acute alveolar infiltrates or pleural effusions are identified. The bony thorax is unremarkable . IMPRESSION: Mild cardiomegaly without congestive heart failure Lungs now clear Reported By:
[2017-06-10 07:00] LABS: BAND NEUTROPHILS % 2 % (0-10); PLATELET MORPHOLOGY COMMENT NORMAL (NORMAL)
[2017-06-10] MEDS: PLAVIX PO SCH (09:30)
[2017-06-10] MEDS ORDERED: LEXAPRO ONE (09:44)
[2017-06-10] MEDS: LEXAPRO PO SCH (10:12)
[2017-06-10] MEDS: JANUVIA PO SCH (10:12)
[2017-06-10] MEDS: OXYBUTYNIN CHLORIDE ER PO SCH (10:13)
[2017-06-10] MEDS: COZAAR PO SCH (10:13)
[2017-06-10] MEDS: MIRALAX POWDER (1 DOSE 17GM) PO SCH (10:13)
[2017-06-10] MEDS: PROTONIX TAB 40 MG PO SCH (10:13)
[2017-06-10] MEDS: VITAMIN D3 PO SCH ×2 (10:13→21:32)
[2017-06-10] MEDS: BENTYL CAP 10 MG PO SCH ×2 (10:13→21:31)
[2017-06-10] MEDS: ROCEPHIN 1 GM IV PREMIX 1 GM/50 ML IV.SOLN. IV SCH (10:14)
[2017-06-10] MEDS ORDERED: LEVAQUIN PREMIX IV 750 MG 750 MG/150 ML BAG IV ONE (11:46)
[2017-06-10] MEDS: DUONEB 0.5 MG/3 MG NEB SCH ×4 (11:53→20:57)
[2017-06-10] MEDS: NS 1000 ML 1,000 ML IV SCH (14:24)
[2017-06-10 20:05] LABS: CKMB % 1.2 % (<4); CREATINE KINASE MB 3.8 ng/mL (0-4.0); TROPONIN I 0.29 ng/mL (0-1.5)
[2017-06-10] MEDS: LIPITOR TAB 40 MG PO SCH (21:32)
[2017-06-10] MEDS ORDERED: NITRO-BID OINT 2% Multi-Dose tube TD SCH (21:40)
[2017-06-10] MEDS: COUMADIN TAB 3 MG PO SCH (22:08)
[2017-06-10] MEDS: NOLVADEX PO SCH (22:09)
[2017-06-10 22:47] LABS: CKMB % 3.2 % (<4)
[2017-06-10 22:49] LABS: CREATINE KINASE MB 14.2 ng/mL (0-4.0)
[2017-06-10 22:50] LABS: TROPONIN I 4.14 ng/mL (0-1.5)
[2017-06-10] MEDS ORDERED: LOVENOX INJ 40 MG SYR SC SCH (23:45)
[2017-06-11] MEDS: NS 1000 ML 1,000 ML IV SCH (00:07)
[2017-06-11] MEDS: NITRO-BID OINT 2% Multi-Dose tube TD SCH ×2 (00:08→06:08)
[2017-06-11 02:45] LABS: CREATINE KINASE MB 24.8 ng/mL (0-4.0)
[2017-06-11 02:46] LABS: CKMB % 4.6 % (<4); TROPONIN I 8.42 ng/mL (0-1.5)
[2017-06-11] MEDS: SOLU-Medrol 40 MG VIAL IVP SCH (05:49)
[2017-06-11 05:54] LABS: HEMOGLOBIN A1C 7.9 % (4.5-6.2)
[2017-06-11 06:18] LABS: CKMB % 6.1 % (<4); CREATINE KINASE MB 40.5 ng/mL (0-4.0); TROPONIN I 25.04 ng/mL (0-1.5)
[2017-06-11 07:56] VITALS: BP 124/55
== END 2017-06-11 08:00 | disposition short-term general hospital (02) | DRG 313 ==
LOC: ER 19:11 → MED/SURG 06-07 04:16 → OBSVTOIN 06-09 08:00
PROVIDERS: ADMIT Internal Medicine; ATTEND Internal Medicine
DX: R07.89 Other chest pain (principal); R06.03 Acute respiratory distress; J20.8 Acute bronchitis due to other specified organisms; R94.31 Abnormal electrocardiogram [ECG] [EKG]; R06.02 Shortness of breath; I25.10 Atherosclerotic heart disease of native coronary artery without angina pectoris; E11.65 Type 2 diabetes mellitus with hyperglycemia; E78.2 Mixed hyperlipidemia; I10 Essential (primary) hypertension; D64.89 Other specified anemias; R79.1 Abnormal coagulation profile; R94.4 Abnormal results of kidney function studies; R94.5 Abnormal results of liver function studies; R26.89 Other abnormalities of gait and mobility; Z79.01 Long term (current) use of anticoagulants
CPT/HCPCS: 36415; 71010; 74022; 80053; 80061; 81001; 82550; 82553; 83036; 83735; 84484; 85025; 85610; 87040; 87070; 87205; 93005; 94640; 94760; 96365; 96367; 96374; 97535; 99218; 99283; 99284; A4222; G0378; J0696; J1650; J1956; J2920; J7620